=== PATIENT | male | born 1960 | race Caucasian/White ===

== ENCOUNTER → 2017-11-28 | Outpatient (CLI) | payer OTHER ==
[~2017-11-28] MED LIST: ASPIRIN325 PO; ATENOLOL-CHLOR1 EAC2 PO; ATORVASTATIN CA40 MG PO; BENICAR40 MG PO; EFFEXOR XR75 MG PO; FLOMAX0.4 MG PO; LISINOPRIL20 MG PO; MAXZIDE-25 MG1 EACH PO; MOBIC15 MG PO; NEURONTIN600 MG PO; NORCO 10-325 T1 EACH PO; NORVASC10 MG PO; PRINIVIL20 MG PO; XANAX1 MG PO; ZANAFLEX2 MG PO; gabapentin PO
--- NOTE | 2017-12-05 15:18 | PAINCON ---
[address] [address] PAIN MANAGEMENT CONSULTATION Name: ORLY VIGIL Room: [facility].#: [id number] Admission: 11/28/17 Attend Phys: Elba Stroud MD Discharge: Date of : 58 Report #: [id number] THIS REPORT FOR: //name// CC: Chrissy Stroud DATE OF SERVICE: 11/28/2017 FOLLOWUP COMPLAINT OR HISTORY OF PRESENT ILLNESS: The patient is a 57-year-old gentleman who has been referred to the pain clinic for evaluation. The patient states that he has a history of lumbar back pain. He has been treated by pain specialist in the past. States that he has chronic pain and has undergone epidural steroid injections without long-term benefit. He has had some treatment of his low back area with local anesthetic to see whether or not radiofrequency lesioning would be effective. This did not seem to be conducive to radiofrequency lesioning. 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 He would like to continue to work. Finds that that hydrocodone 10 mg q. 4-6 hours has been helpful. Also, has used ibuprofen. Gabapentin 600 mg has been tried. Overall, he rates his pain as an 8/10. He is concerned that he continues to have pain in his low back with some pain down into his buttocks. This pain has been problematic for a number of years. He feels that his pain control is about 50% improved with use of his current medications. He has been told that he may need to retire and receive benefits. He is not interested in that at this juncture. He would like to continue to work as long as he could. He feels that his current level of hydrocodone enables him to continue working. Without it, he would not be able to. He would like to continue with this medication and he would like to continue with his medications in the pain clinic. He would also like to try any other modalities that might improve his level of pain control. He was injured a number of years ago. 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 States that he did step on some oil. Slipped, fell and hurt his back. That was a workmen's compensation situation that has been resolved. ALLERGIES: TETANUS. CURRENT MEDICATIONS: Duloxetine 30 mg daily, lisinopril 20 mg b.i.d., Lipitor 40 mg, gabapentin 600 mg q.i.d., alprazolam 1 mg b.i.d., venlafaxine 75 mg, hydrocodone 10/325 q.4-6h. p.r.n., atenolol/chlorthalidone 100/25. PAST MEDICAL HISTORY: Hypertension, anxiety, hyperlipidemia, depression. PAST SURGICAL HISTORY: Tonsillectomy, vasectomy. FAMILY HISTORY: Father with bladder cancer, coronary artery disease, arthritis. Mother with non-Hodgkin's lymphoma, depression, hypertension, [place] [address] PAIN MANAGEMENT CONSULTATION Name: ORLY VIGIL Room: [facility]#: [id number] Admission: 11/28/17 Attend Phys: Elba Stroud MD Discharge: Date of : 58 Report #: [id number] thyroid disorder. Has children, son and daughter. 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 Drinks beer daily. REVIEW OF SYSTEMS: Decreased appetite, fatigue, weakness, hearing loss, ringing in the ears, sore throat, voice changes, loss of appetite, frequent urination, burning, painful urination, awakens to urinate at night, blood in the urine, changes in the force of his stream, incontinence, dribbling, sexual difficulty, hot and cold intolerance, joint pain, joint stiffness, weakness of muscles, muscle pain, back pain, difficulty walking, numbness and tingling, tremors. LABORATORY DATA: MRI of the lumbar spine dated 11/09/2017. 1. L2-L3 mild annular disk bulge present. No focal disk protrusion. Central spinal cord canal is maintained without stenosis. Mild encroachment of the exiting neural foramen bilaterally. There is a slight retrolisthesis, grade 1 of L2 related to L3. Mild facet degenerative changes. Thecal sac 1.0 cm AP. 2. L3-L4 mild degree of disk bulging. No evidence of disk protrusion. Central spinal canal and exiting neural foramen maintained. Thecal sac 1.2 cm AP. 3. L4-L5 annular disk bulge present. No focal disk protrusion. Mild effacement of the bilateral exiting neural foramen. Central canal without stenosis. Moderate facet arthropathy. Thecal sac 1.0 cm AP. 4. L5-S1 disk narrowing with minimal degree of disk bulging. No focal disk protrusion. There is severe facet arthropathy. Findings result in moderate to severe bilateral neural foraminal encroachment with thecal sac 1.1 cm AP. PAIN CLINIC ASSESSMENT: 1. The patient has some chronic low back pain with some degenerative changes with facet arthropathy. 2. Height 5 feet and 10 inches. Weight 218 pounds, BMI is 31. 3. Vitals: Blood pressure 138/74, heart rate 47, respiratory rate 16, room air saturation 97%, temperature 98.1. 4. Pain intensity 01/17. 5. Fall risk. The patient fell. He was walking in the kitchen. His dog tripped him up. 6. Blood thinners. The patient is not on a blood thinning medication. 7. Hypertension. The patient is being treated for hypertension. 8. Opioid therapy greater than 6 weeks. The patient has been receiving hydrocodone on a regular basis greater than 6 weeks from one physician. 9. Risk assessment tool. 10. Functional assessment tool. 11. Recreational drug use. The patient denies use of recreational drugs. 12. Tobacco. The patient smokes cigarettes 1 pack per day, has smoked for greater than 10 years. 13. Alcohol: The patient [place] [address] PAIN MANAGEMENT CONSULTATION Name: MADELINEANTONORLY Danial Room: [facility]#: [id number] Admission: 11/28/17 Attend Phys: Elba Stroud MD Discharge: Date of : 58 Report #: [id number] PHYSICAL EXAMINATION: GENERAL: The patient is a well-developed white male, appears his stated age. He is alert and oriented x 3. Speech is fluent. HEENT: Normocephalic, atraumatic. Extraocular eye muscles intact. Sclerae nonicteric. Hearing within normal limits. Mucous membranes are moist. NECK: Without adenopathy or JVD. Good range of motion. HEART: Regular rate. ABDOMEN: Nontender. CHEST: Clear to auscultation without rhonchi or rales. EXTREMITIES: Lower extremity muscle strength is judged to be 5/5 for the major muscle groups. Weston's sign was negative palpated. MUSCULOSKELETAL: The patient has somewhat of a kyphotic upper thoracic area without scoliosis or lordosis. Palpation in the left and right paraspinous muscles in the L4 through sacral area does cause some reproduction of his pain and discomfort. Forward bending to 60 degrees cause some increased back discomfort. Lumbar extension causes some discomfort in his low back, left and right lateral bending were noted with some increased pain and discomfort in the low back area. Left and right lateral rotation are somewhat limited and the patient's low back area was more problematic. The patient notes some increased discomfort in his shoulders with his hands over his head. Deep tendon reflexes are +1 for the biceps and triceps bilaterally. Absent at the knees and ankles. IMPRESSION: 1. Chronic low back pain. 2. Myofascial pain. 3. Anxiety. 4. Hyperlipidemia. 5. Coronary artery disease. RECOMMENDATIONS: We discussed treatment options with the patient. At this juncture, we will agree to write for the patient's hydrocodone. We explained to him the problems with use of opioid medications. He is aware of what is going on in the media. States that he keeps his medications locked up. Did have a daughter who had some problem with the opioid medications and she has turned her life around. States that he keeps his medications locked up in a gun rack at home. Feels that hydrocodone enables him to stay gainfully employed. We will try Mobic 7.5 mg 1 p.o. every day. Hopefully, this would provide some nonsteroidal anti-inflammatories benefit more so than the ibuprofen, which he has to take it multiple times through the day and p.r.n. A script for hydrocodone one p.o. q.4-6h has been provided. The patient has signed a contract with the pain clinic that he will only get his medications from 1 source. We will consider myofascial pain injection in his low back area. The patient will call us if he has any problem with his medications. [address] [address] PAIN MANAGEMENT CONSULTATION Name: ORLY VIGIL Danial Room: [facility] DANIEL Villanueva#: [id number] Admission: 11/28/17 Attend Phys: Elba Stroud MD Discharge: Date of : 58 Report #: [id number] We would like to thank you for letting us participate in his care. We hope he continues to improve. <ELECTRONICALLY SIGNED> By: Elba Stroud MD 12/05/17 1518 [id number]. Gm Stroud MD /[facility]
== END ==
LOC: M.PC 03:59
DX: G89.29 Other chronic pain (principal); M54.5 Low back pain; I25.10 Atherosclerotic heart disease of native coronary artery without angina pectoris; E78.5 Hyperlipidemia, unspecified; M79.1 Myalgia; F41.9 Anxiety disorder, unspecified

== ENCOUNTER → 2017-12-05 | Outpatient (CLI) | payer OTHER ==
--- NOTE | 2017-12-12 08:42 | PAINCON ---
[address] [address] PAIN MANAGEMENT CONSULTATION Name: MADELINEANTONORLY Danial Room: [facility]#: [id number] Admission: 12/05/17 Attend Phys: Elba Stroud MD Discharge: Date of : 58 Report #: [id number] THIS REPORT FOR: //name// CC: Chrissy Stroud DATE OF SERVICE: 12/05/2017 PRIMARY CARE PHYSICIAN: Chrissy Hodge MD FOLLOWUP COMPLAINT: Here for a trigger point injection. FOLLOWUP HISTORY: The patient is a 57-year-old gentleman who has been seen in the pain clinic. As you recall, he has a history of chronic back pain. He does have some myofascial pain/trigger point areas in his low back at this juncture. He has returned to the pain clinic for an injection of these areas. Feels that hydrocodone, meloxicam and gabapentin are helpful and would like to continue their use. 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 This entails quite a bit of work with contortions and quite a physical job. ALLERGIES: TETANUS. CURRENT MEDICATIONS: Duloxetine 30 mg daily, lisinopril 20 mg b.i.d., Lipitor 40 mg, gabapentin 600 mg q.i.d., alprazolam 1 mg b.i.d., venlafaxine 75 mg, hydrocodone 10/325, atenolol/chlorthalidone 100/25. PAIN CLINIC ASSESSMENT: 1. The patient has some chronic low back pain with some degenerative changes with facet arthropathy in his low back. 2. Height 5 feet 10 inches, weight 218 pounds, BMI is 31. 3. Vital signs: Blood pressure 144/81, heart rate 55, respiratory rate 16, room air saturation 97%, temperature 98.2. 4. Pain intensity 8/10. 5. Fall risk. The patient fell while walking in the kitchen when he was tripped by his dog in the last 3 months. 6. Blood thinner. The patient is not using any blood thinning medication at this juncture. 7. Hypertension. The patient is being treated for hypertension. 8. Opioid therapy greater than 6 weeks. The patient has received hydrocodone on a regular basis and is receiving his medications from one physician. 9. Risk assessment tool. 10. Functional assessment tool. 11. Recreational drug use: The patient denies use of recreational drugs. 12. Tobacco: The patient smokes 1 pack of cigarettes per day, has smoked for greater than [place] [address] PAIN MANAGEMENT CONSULTATION Name: ORLY VIGIL Room: [facility]#: [id number] Admission: 12/05/17 Attend Phys: Elba Stroud MD Discharge: Date of : 58 Report #: [id number] 13. Alcohol. The patient drinks alcoholic beverage daily. PHYSICAL EXAMINATION: GENERAL: The patient is a well-developed white male, appears stated age. He is alert and oriented x 3. The speech is fluent. HEENT: Normocephalic, atraumatic. Extraocular eye muscles intact. Sclerae nonicteric. Hearing is within normal limits. Mucous membranes are moist. NECK: Without adenopathy or JVD. Good range of motion. HEART: Regular rate. S1, S2. ABDOMEN: Nontender. CHEST: Clear to auscultation without rhonchi or rales. EXTREMITIES: Lower judged to be 5/5 muscle strength. MUSCULOSKELETAL: Without significant kyphosis, scoliosis or lordosis. Palpation in the left as well as the right L4-L5 and L5-S1 paraspinous muscle soreness with trigger points. IMPRESSION: 1. Chronic low back pain. 2. Myofascial pain. 3. Anxiety. 4. Hyperlipidemia. 5. Coronary artery disease. RECOMMENDATIONS: We discussed treatment options with the patient. Risks and benefits of trigger point injection were discussed at the last visit. Possible complications of the procedures were discussed and the benefits. At this juncture, the patient has returned to the pain clinic for a trigger point injection to the low back area in the left and right side in the area of the trigger points. He has been explained the possible complication of the procedure, which could include worsening of pain, no improvement in pain, bleeding, increased muscle soreness and agrees to proceed. PROCEDURE NOTE: The patient was placed in the sitting position. His back was sterilely prepped with a chlorhexidine solution. He is sitting perpendicular to table with a chair under his feet. A pillow was under his abdomen. The patient leaned forward as though he was going to tie his shoe. Trigger points were noted in the left as well as in the right posterior-superior iliac spine area near the gluteus ruben and the latissimus dorsi. Palpation on the left and right, reproduced pain of a trigger point in nature. The patient elects to proceed. His back had been sterilely prepped. The trigger point was identified. A 25-gauge needle was then advanced into the area of the posterior superior iliac spine area as well as the gluteus ruben and latissimus dorsi. A 25-gauge needle was then advanced into the left trigger point. The patient stated this was the appropriate area. Total of 10 mL of 0.5% bupivacaine and 80 mg Depo-Medrol was injected. The contralateral side was treated in a like fashion. The trigger point was identified. The latissimus dorsi [place] [address] PAIN MANAGEMENT CONSULTATION Name: ORLY VIGIL Room: [facility]#: [id number] Admission: 12/05/17 Attend Phys: Elba Stroud MD Discharge: Date of : 58 Report #: [id number] ruben area was palpated. This reproduced a trigger point. A 25-gauge needle was then advanced into the area of discomfort. A total of 10 mL of 0.25% bupivacaine and 80 mg Depo-Medrol was injected. The patient tolerated the procedure well. There were no complications. He remained in the pain clinic for an appropriate amount of time. He will monitor the area. The patient will refrain from activities, which might cause an infection. He will then follow up in the pain clinic in the near future. We would like to thank you for letting us participate in his care. We hope he continues to improve. <ELECTRONICALLY SIGNED> By: Elba Stroud MD 12/12/17 0842 [id number]. Gm Stroud MD /[facility]
== END | disposition home or self-care (01) ==
LOC: M.PC 03:28
DX: M79.1 Myalgia (principal); M46.96 Unspecified inflammatory spondylopathy, lumbar region; G89.29 Other chronic pain; I10 Essential (primary) hypertension; I25.10 Atherosclerotic heart disease of native coronary artery without angina pectoris; E78.5 Hyperlipidemia, unspecified; M54.5 Low back pain; F41.9 Anxiety disorder, unspecified; F17.210 Nicotine dependence, cigarettes, uncomplicated; Z79.899 Other long term (current) drug therapy; Z88.8 Allergy status to other drugs, medicaments and biological substances; Z79.891 Long term (current) use of opiate analgesic; Z79.82 Long term (current) use of aspirin

== ENCOUNTER → 2018-01-30 | Outpatient (CLI) | payer OTHER ==
--- NOTE | 2018-02-05 16:41 | PAINCON ---
[address] [address] PAIN MANAGEMENT CONSULTATION Name: ORLY VIGIL Room: [facility]#: [id number] Admission: 01/30/18 Attend Phys: Elba Stroud MD Discharge: Date of : 58 Report #: [id number] THIS REPORT FOR: //name// CC: Chrissy Stroud DATE OF SERVICE: 01/30/2018 CHIEF COMPLAINT: Pain in the mid back area, which improved after the last injection, I would like to have another. FOLLOWUP HISTORY: The patient is a 57-year-old gentleman who has been seen in the pain clinic because of myofascial pain. He underwent trigger point injections to his low back area. 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 He requires quite a bit of movement. He has noted that his pain continues to worsen. It improved after the last injection in the low back area. He has returned today with the hopes of proceeding with another injection to help quell his pain. ALLERGIES: TETANUS. CURRENT MEDICATIONS: Duloxetine 30 mg, lisinopril 20 mg b.i.d., Lipitor 40 mg, gabapentin 600 mg q.i.d., alprazolam 1 mg b.i.d., venlafaxine 75 mg, hydrocodone 10/325, atenolol and chlorthalidone 100/25. PAIN CLINIC ASSESSMENT: 1. The patient has some chronic pain in his low back with his degenerative in nature with facet arthropathy in his low back. 2. Height 5 feet 10 inches, weight 223 pounds and BMI 32. 3. VITAL SIGNS: Blood pressure 198/96, pulse 65, respiratory rate 16, room air saturation 96% and second blood pressure 171/93. 4. Pain intensity /10. 5. Fall history: The patient has not fallen in the last 3 months. 6. Blood thinner. The patient is not on a blood thinning medication. 7. Hypertension. The patient is being treated for hypertension. He is going to see his physician today again regarding the elevated blood pressures. They have been making some inroads into this. 8. Opioid use. The patient has received hydrocodone to the pain clinic. He gets this medication from one source. 9. Risk assessment tool. 10. Functional assessment tool. 11. Recreational drug use. The patient denies use of recreational drugs. 12. Tobacco: The patient denies use of tobacco. 13. Alcohol: The patient denies use of alcohol. PHYSICAL EXAMINATION: [address] [place] [address] PAIN MANAGEMENT CONSULTATION Name: ORLY VIGIL Room: [facility]#: [id number] Admission: 01/30/18 Attend Phys: Elba Stroud MD Discharge: Date of : 58 Report #: [id number] GENERAL: The patient is a well-developed, well-nourished white male. Appears his stated age. He is alert and oriented x 3. Affect is appropriate. Speech is fluent. HEENT: Normocephalic, atraumatic. Extraocular motion intact. Sclerae nonicteric. Hearing within normal limits. Mucous membranes are moist. NECK: Without adenopathy or JVD. Good range of motion. HEART: Regular rate. S1, S2. ABDOMEN: Nontender. CHEST: Clear to auscultation without rhonchi or rales. EXTREMITIES: Judged to be 5/5 for the major muscle groups. The patient has a perception in his feet of the skin feels as though it is being stretched. Notes some tingling in his feet after prolonged standing. MUSCULOSKELETAL: Without significant kyphosis, scoliosis or lordosis. Palpation in the left and right L5-S1, L4-L5 paraspinous muscle areas denotes trigger points on both left and right side. IMPRESSION: 1. Bilateral trigger points, which improved after the last injection. 2. Myofascial pain. 3. Anxiety. 4. Hypertension. 5. Hyperlipidemia. 6. Coronary artery disease. RECOMMENDATION: The patient did have some elevated blood pressures today. States that he is going to see his primary physician today in regards to the elevated blood pressures to have this attended to. He would like to undergo a trigger point injection to the affected areas. Last injections were quite beneficial and the patient noted decrease in his pain and increased ability to engage in activities with less discomfort. He has noted that these have returned. I would like to proceed with treatment for those two trigger point areas. Risks and benefits of the procedure were discussed. They include possibility of an impression of infection, worsening of pain, no improvement in pain and the patient elects to proceed. PROCEDURE NOTE: The patient was placed in the sitting position. He is perpendicular to the table in the examination room. He has a chair was placed under his feet. His back was palpated. In the left and right paraspinous muscle area near the posterior superior iliac spine and the clip gluteus rbuen/levator of the latissimus dorsi. The patient has trigger points. These were sterilely prepped with a Betadine solution. A 25-gauge needle was then advanced into the trigger point near the left gluteus ruben, latissimus dorsi and a total of 10 mL of 0.5% bupivacaine, 40 mg triamcinolone was injected after the trigger point was identified and the patient acknowledged this was a trigger point. The contralateral side was treated in a like fashion. A 25-gauge needle was advanced to the area trigger point was noted. Total of 10 mL of 0.5% [place] [address] PAIN MANAGEMENT CONSULTATION Name: MUSAORLY Danial Room: [facility]#: [id number] Admission: 01/30/18 Attend Phys: Elba Stroud MD Discharge: Date of : 58 Report #: [id number] bupivacaine and 40 mg triamcinolone was injected. The patient tolerated the procedure well. There were no complications. He remained in the pain clinic for an appropriate amount of time. He will follow up with his primary regarding the elevated blood pressure readings. <ELECTRONICALLY SIGNED> By: Elba Stroud MD 02/05/18 1641 [id number]. Gm Stroud MD /nt
== END | disposition home or self-care (01) ==
LOC: M.PC 01-07 12:00
DX: M79.1 Myalgia (principal); G89.29 Other chronic pain; I10 Essential (primary) hypertension; E78.5 Hyperlipidemia, unspecified; F41.9 Anxiety disorder, unspecified; I25.10 Atherosclerotic heart disease of native coronary artery without angina pectoris; Z88.8 Allergy status to other drugs, medicaments and biological substances; Z79.891 Long term (current) use of opiate analgesic; Z79.899 Other long term (current) drug therapy; Z79.82 Long term (current) use of aspirin

== ENCOUNTER → 2018-02-27 | Outpatient (CLI) | payer OTHER ==
--- NOTE | 2018-03-24 10:00 | PAINCON ---
[address] [address] PAIN MANAGEMENT CONSULTATION Name: ORLY VIGIL Room: [facility]#: [id number] Admission: 02/27/18 Attend Phys: Elba Stroud MD Discharge: Date of : 58 Report #: [id number] THIS REPORT FOR: //name// CC: Chrissy Stroud DATE OF SERVICE: 02/27/2018 FOLLOWUP COMPLAINT: Pain in the chest and low back area. HISTORY OF PRESENT ILLNESS: The patient is a 58-year-old gentleman who has been seen in the pain clinic because of chronic pain. He has been experiencing some chest pain. Has some pain in his thigh as well as his low back area. He has been treated for myofascial pain. He has undergone trigger point injections and gleaned benefit from these. At this juncture, because of the chest pain, the patient is undergoing a stress echo today. He also has been having some problems with his blood pressure. States that his heart rate had been in about the 50s to 60s level, now it has been placed at about 100. Did have an episode when he was at work lifting an item. States that his heart rate went to about 180. He has a fit bracelet on his arm, which measured that rate for him. He states that rate went down after he rested for a while. 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 ALLERGIES: TETANUS. CURRENT MEDICATIONS: Duloxetine 30 mg, lisinopril 20 mg b.i.d., Lipitor 40 mg, gabapentin 600 mg q.i.d., alprazolam 1 mg b.i.d., venlafaxine 75 mg, hydrocodone 10/325, atenolol, chlorthalidone 100/25. PAIN CLINIC ASSESSMENT AND PQRS: 1. The patient has not been treated for osteoarthritis or rheumatoid arthritis. 2. Height 5 feet 10 inches. Weight 225 pounds, BMI is 32. 3. Vital signs: Blood pressure 161/108, heart rate 75, respiratory rate 16, room air saturation 98%, temperature 98.2. 4. Pain score 7/10. 5. Fall history: The patient has not fallen in the last 3 months. 6. Blood thinner. The patient is not on a blood thinning medication. 7. Hypertension. The patient is being treated for hypertension and his physician continues to work toward regulating his blood pressures. 8. Opioid use. The patient [facility]. 9. Risk assessment tool. 10. Functional assessment tool. 11. Recreational drug use. The patient denies use of recreational drugs. 12. Tobacco: The patient has smoked about one and a half packs of cigarettes per day, has smoked for 11 years. Admits [place] [address] PAIN MANAGEMENT CONSULTATION Name: MADELINEANTONORLY Danial Room: [facility]#: [id number] Admission: 02/27/18 Attend Phys: Elba Stroud MD Discharge: Date of : 58 Report #: [id number] PHYSICAL EXAMINATION: GENERAL: The patient is a well-developed, well-nourished white male. Appears his stated age. He is alert and oriented x 3. His affect is appropriate. Speech is fluent. HEENT: Normocephalic, atraumatic. Extraocular eye muscles intact. Sclerae not icteric. Mucous membranes are moist. NECK: Without adenopathy or JVD. Good range of motion. HEART: Regular rate. ABDOMEN: Nontender. CHEST: Clear to auscultation without rhonchi or rales. EXTREMITIES: Judged to be 5/5 for the major muscle groups in the upper extremity without change in muscle bulk. The patient has a perception in his feet that his skin is being stretched with some tingling after prolonged standing. MUSCULOSKELETAL: Without kyphosis, scoliosis or lordosis. Palpation of the left and right L5-S1 and L4-L5, paraspinous muscles did note some soreness on the sides. IMPRESSION: 1. Chest pain: The patient is about to undergo a stress echo today. 2. Myofascial pain improved with trigger point injections. 3. Anxiety. 4. Hypertension. 5. Hyperlipidemia. 6. Coronary artery disease. RECOMMENDATIONS: We discussed treatment options with the patient. At this juncture, we will continue with his current medications. A script for his medications of hydrocodone have been written. The patient states that he is taking meloxicam and finds this medication helpful. He is scheduled today to undergo a stress echo. He will follow up with his primary physician in regards to blood pressure management. He will call us if he has any problems. We would like to thank you for letting us participate in his care. We have spoken with the patient about use of tobacco. I explained to the patient the pathophysiology of tobacco smoke how that it can be problematic for him, particularly in the case of him now having chest pain. He will follow up in the future. We would like to thank you for letting us participate in his care. We hope he continues to improve. <ELECTRONICALLY SIGNED> By: Elba Stroud MD 03/24/18 [id number]. MD SHARIFA Lester
== END ==
LOC: M.PC 01:43
DX: F41.9 Anxiety disorder, unspecified (principal); I10 Essential (primary) hypertension; E78.5 Hyperlipidemia, unspecified; I25.10 Atherosclerotic heart disease of native coronary artery without angina pectoris

== ENCOUNTER → 2018-03-27 | Outpatient (CLI) | payer OTHER ==
[~2018-03-27] MED LIST changes: -ZANAFLEX2 MG PO
--- NOTE | 2018-04-23 16:08 | PAINCON ---
[address] [address] PAIN MANAGEMENT CONSULTATION Name: ORLY VIGIL Room: [facility]#: [id number] Admission: 03/27/18 Attend Phys: Elba Stroud MD Discharge: Date of : 58 Report #: [id number] THIS REPORT FOR: //name// CC: Chrissy Stroud DATE OF SERVICE: 03/27/2018 CHIEF COMPLAINT: Like to have the medication renewed. I had some pain in the middle of my back that has been pretty severe. FOLLOWUP HISTORY: The patient is a 58-year-old gentleman who has been followed in the pain clinic because of myofascial pain. He has undergone trigger point injections to this area and gleaned benefits from these. He notes that the pain continues to be less since the injection, but notes some increased discomfort. Feels at about, T12-L1 there is some increased pain and discomfort. States that last night he was working on mass problems. The pain is severe enough that he elected to go to bed. 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 States that it is a 5 year program. He has approaching the 1 year maximo. Notes that some of the pain in his back is secondary to his job, which causes different amounts of lifting and can torsioning. At this juncture, he has returned today with a desire to renew his nonsteroidal anti-inflammatory medication and the hydrocodone. ALLERGIES: TETANUS. CURRENT MEDICATIONS: Duloxetine 30 mg, lisinopril 20 mg b.i.d., Lipitor 40 mg, gabapentin 600 mg q.i.d., alprazolam 1 mg b.i.d., venlafaxine 75 mg, hydrocodone , atenolol, chlorthalidone 04/03. PAIN CLINIC ASSESSMENT/PQRS: 1. The patient has not been treated for osteoarthritis or rheumatoid arthritis. 2. Height 5 feet 10 inches, weight 230 pounds, BMI is 33. 3. Vital signs: Blood pressure 162/93, heart rate 72, respiratory rate 18, room air saturation 97%, temperature 98%. 4. Pain intensity to an 8/10. 5. Fall history: The patient states that he has fallen in the last 3 months. He states that he simply missed a step. There was no medical need. 6. Blood thinner. The patient is not on a blood thinning medication. 7. Hypertension. The patient has been treated for hypertension. His high blood pressure is somewhat elevated and he is on 3 medications currently. 8. Opioid therapy greater than 6 weeks. The patient has received hydrocodone 1 tablet p.o. every 6 hours p.r.n., total of four tablets daily, a morphine equivalent of 40 mEq. 9. Risk [place] [address] PAIN MANAGEMENT CONSULTATION Name: MADELINEANTONORLY Danial Room: [facility]#: [id number] Admission: 03/27/18 Attend Phys: Elba Stroud MD Discharge: Date of : 58 Report #: [id number] 10. Functional assessment tool. Recreational drug use. The patient denies use of recreational drugs. 11. Tobacco: The patient has smoked for 11 years and smoked one-half pack of cigarettes per day spoke with the patient about 3 minutes regarding the benefits of tobacco use. 12. Alcohol: The patient drinks some beer daily. PHYSICAL EXAMINATION: GENERAL: The patient is a well-developed, well-nourished white male. Appears his stated age. He is alert and oriented x3. His affect is appropriate. Speech is fluent. HEAD, EYES, EARS, NOSE, AND THROAT: Normocephalic, atraumatic. Extraocular eye muscles intact. NECK: Without adenopathy or bruits. HEART: Regular rate. S1, S2. ABDOMEN: Nontender. Bowel sounds present. CHEST: Clear to auscultation without rhonchi or rales. EXTREMITIES: Upper extremity muscle strength is judged to be 5/5 for the major muscle groups. The patient has some complaint of pain and discomfort in the middle of his back approximately T12-L1. Notes that with certain movements, flexion, extension note some exacerbation of his back pain. It continues to have pain and discomfort in the left as well as the right paraspinous areas, which have been injected. The patient is not complaining of significant pain radiating down into his legs. MUSCULOSKELETAL: Without kyphosis, scoliosis, lordosis. IMPRESSION: 1. Myofascial pain trigger point injections have been beneficial. 2. Anxiety. 3. Hypertension. 4. Hyperlipidemia. 5. Coronary artery disease. RECOMMENDATIONS: We discussed treatment options with the patient. At this juncture, we will continue with his current medications. He is taking medication as prescribed. He has been given a script for hydrocodone 1 tablet p.o. q.i.d. The patient has been warned not to use alcoholic beverages while on his job or in combination with the opioid medications. These can cause increased problems with sedation and being able to think clearly. The patient states that he would be mindful of that. The patient finds that Meloxicam is helpful. He will monitor his GI tract. If he notes some problems with GI discomfort or bleeding. He will stop this medication. We discussed the benefits of a flu shot. The patient declines flu injections. States that he has on rare occasion in his life had and opts not to undergo a flu shot. Does not like the thought that the government mandated flu shots. He will follow up in the future [place] [address] PAIN MANAGEMENT CONSULTATION Name: ORLY VIGIL Room: [facility]#: [id number] Admission: 03/27/18 Attend Phys: Elba Stroud MD Discharge: Date of : 58 Report #: [id number] We would like to thank you for letting us to participate in his care. We hope he continues to improve. <ELECTRONICALLY SIGNED> By: Elba Stroud MD 04/23/18 [id number] 1515N. Gm Stroud MD /[facility] [place]
== END ==
LOC: M.PC 05:27
DX: M79.18 Myalgia, other site (principal); I10 Essential (primary) hypertension; E78.5 Hyperlipidemia, unspecified; I25.10 Atherosclerotic heart disease of native coronary artery without angina pectoris; F41.9 Anxiety disorder, unspecified; Z79.899 Other long term (current) drug therapy

== ENCOUNTER → 2018-04-24 | Outpatient (CLI) | payer OTHER ==
[~2018-04-24] MED LIST changes: +ZANAFLEX2 MG PO
--- NOTE | ~2018-04-24 | PAINCON ---
[address] [address] PAIN MANAGEMENT CONSULTATION Name: ORLY VIGIL Room: [facility]#: [id number] Admission: 04/24/18 Attend Phys: Elba Stroud MD Discharge: Date of : 58 Report #: [id number] THIS REPORT FOR: //name// CC: Chrissy Stroud DATE OF SERVICE: 04/24/2018 CHIEF COMPLAINT: The low back pain has returned. The trigger point injections were helpful. HISTORY: The patient is a 58-year-old gentleman who has been followed in the Pain Clinic because of myofascial pain. As you may recall, he has undergone trigger point injections. He is gleaned benefits from these. He has returned today indicating that he is having some recurrence of his pain. 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 States that there are some jobs that he has done, which are challenging. States that he had to go and move some large pipes. Has noted some pain and discomfort in his back since that time. 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 He is somewhat concerned that activities such as these exacerbate his back pain. He feels that Meloxicam, hydrocodone and gabapentin medications are helpful. He has returned today with a desire to undergo a trigger point injection to the myofascial pain, places in his low back area today. ALLERGIES: TETANUS. CURRENT MEDICATIONS: Duloxetine 30 mg, lisinopril 20 mg b.i.d., Lipitor 40 mg, gabapentin 600 mg q.i.d., alprazolam 1 mg b.i.d., venlafaxine 75 mg, hydrocodone 10/325, atenolol/chlorthalidone ____. PAIN CLINIC ASSESSMENT/PQRS: 1. The patient has not been treated for osteoarthritis or rheumatoid arthritis. 2. Height 5 feet 10 inches, weight 227 pounds, BMI is 32.7. 3. Vital signs: Blood pressure 137/79, heart rate 74, respiratory rate 16, room air saturation is 95%, temperature 98.5. 4. Pain intensity, 01/17. 5. Fall history. The patient has not fallen in the last 3 months. 6. Blood thinner. The patient is not on a blood thinning medication. 7. Hypertension: The patient is being treated for hypertension. 8. Opioids greater than 6 weeks. The patient does receive medications, through the Pain Clinic. 9. Risk assessment tool. 10. Functional assessment tool. 11. Tobacco: The patient has smoked for 11 years, smoked one half pack of cigarettes per day. I spoke with the patient about 3 minutes regarding the benefits of tobacco [place] [address] PAIN MANAGEMENT CONSULTATION Name: ORLY VIGIL Room: [facility]#: [id number] Admission: 04/24/18 Attend Phys: Elba Stroud MD Discharge: Date of : 58 Report #: [id number] 12. Alcohol: The patient does drink an alcoholic beverage daily. PHYSICAL EXAMINATION: GENERAL: The patient is a well-developed, well-nourished white male. Appears his stated age. He is alert and oriented x 3. His affect is appropriate. Speech is fluent. HEENT: Normocephalic, atraumatic. Extraocular eye muscles intact. Sclerae nonicteric. Mucous membranes are moist. NECK: Without adenopathy or JVD. HEART: Regular rate. S1, S2. ABDOMEN: Nontender. Bowel sounds present. CHEST: Clear to auscultation without rhonchi or rales. EXTREMITIES: Upper extremity muscle strength is judged to be 5/5 for the major muscle groups. The patient has some pain and discomfort in lower portion of his back near the lumbar area at L5-S1 in the paraspinous muscle area. Palpation in this area does reproduce his pain and discomfort with trigger point noted in these 2 areas. MUSCULOSKELETAL: Without significant kyphosis, scoliosis or lordosis. IMPRESSION: 1. Myofascial pain with trigger points in the low back area. 2. Anxiety. 3. Hypertension. 4. Hyperlipidemia. 5. Coronary artery disease. RECOMMENDATIONS: We discussed treatment options with the patient. Risks and benefits of a trigger point injection to the affected areas were discussed. The patient has been noting pain and discomfort in the low back area with certain activities associated with his job. He has some concerns as to whether or not this might be a problem long-term with him. We explained to the patient that for determination of the ones ability to work one would need a functional capacity exam. I explained to him that I do not get into disability decisions. At this juncture, he would like to go ahead and continue with trigger point injection in the low back areas today. PROCEDURE NOTE: The patient was taken to the procedure area. He was assisted in getting on the examination table. He sat perpendicular to the table. A chair was placed under his feet. His back was sterilely prepped with a chlorhexidine solution, which was allowed to dry. Left and right posterior superior iliac spine areas were tender and trigger points were noted. The right area was identified in the area of the gluteus ruben and latissimus dorsi. A 25-gauge needle was then advanced into this area. A total of 80 mg Depo-Medrol was injected. A total of 8 mL of 0.5% bupivacaine was utilized. The contralateral left side was treated in the like fashion. Trigger point was noted in the area of the latissimus dorsi and the gluteus ruben. [place] 25[place] [address] PAIN MANAGEMENT CONSULTATION Name: ORLY VIGIL Room: [facility]#: [id number] Admission: 04/24/18 Attend Phys: Elba Stroud MD Discharge: Date of : 58 Report #: [id number] needle was then advanced into this area. A total of 8 mL of 0.5% bupivacaine was injected into the second trigger point. The patient tolerated the procedure well. There was no bleeding. He was taken to the recovery room where he remained for an appropriate amount of time. A script for meloxicam 15 mg 1 p.o. daily and tizanidine were rewritten. The patient also has been given a script for hydrocodone 10/325 one p.o. daily. The patient will not take his medication if he notes any problems with sedation or clear lack of clarity in his thinking. He states that he would. We would like to thank you for letting us participate in his care. We hope he continues to improve. By: [id number]. Gm Stroud MD /nt
== END | disposition home or self-care (01) ==
LOC: M.PC 05:35
DX: M79.18 Myalgia, other site (principal); F41.9 Anxiety disorder, unspecified; I10 Essential (primary) hypertension; E78.5 Hyperlipidemia, unspecified; I25.10 Atherosclerotic heart disease of native coronary artery without angina pectoris; F17.210 Nicotine dependence, cigarettes, uncomplicated; Z98.890 Other specified postprocedural states; Z88.8 Allergy status to other drugs, medicaments and biological substances; Z79.899 Other long term (current) drug therapy; Z79.891 Long term (current) use of opiate analgesic; Z79.82 Long term (current) use of aspirin

== ENCOUNTER → 2018-05-22 | Outpatient (CLI) | payer OTHER ==
--- NOTE | ~2018-05-22 | PAINCON ---
[address] [address] PAIN MANAGEMENT CONSULTATION Name: ORLY VIGIL Room: [facility]#: [id number] Admission: 05/22/18 Attend Phys: Elba Storud MD Discharge: Date of : 58 Report #: [id number] THIS REPORT FOR: //name// CC: Chrissy Stroud DATE OF SERVICE: 05/22/2018 CHIEF COMPLAINT: Continued low back pain. Have pain in the mid and upper back, which has been there for years. FOLLOWUP HISTORY: The patient is a 58-year-old gentleman who has been followed in the pain clinic. As you recall, he has a long history of back pain involving his upper back as well as some lower back. He continues to have some spasms in the upper as well as lower back area. Feels that tizanidine has been helpful. Also, has some intercostal muscle soreness. Left side and right side are both problematic. He finds that his medications, continue to "take the edge off." Rates his pain as an 8/10. 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 These all can exacerbate his pain and makes things more problematic. Overall, he feels that his medications are helpful. He has undergone trigger point injections in the past and this has been helpful with the myofascial pain in the low back area. ALLERGIES: TETANUS. CURRENT MEDICATIONS: Duloxetine 30 mg, lisinopril 20 mg b.i.d., Lipitor 40 mg, gabapentin 600 mg q.i.d., alprazolam 1 mg b.i.d., venlafaxine 75 mg, hydrocodone 10/325, atenolol, chlorthalidone. PAIN CLINIC ASSESSMENT/PQRS: 1. The patient is not being treated for rheumatoid arthritis or osteoarthritis. 2. Height 5 feet 10 inches, weight 230 pounds, BMI is 33.8. 3. Vital signs: Blood pressure 128/88, heart rate 84, respiratory rate 16, room air saturation 96%, temperature is 98.2. 4. Pain intensity 8/10. 5. Fall history: The patient has not fallen in the last 3 months. 6. Blood thinner. The patient is not on a blood thinning medication. 7. Hypertension. The patient is being treated for hypertension. 8. Opioids greater than 6 weeks. The [facility]. 9. Risk assessment tool, low for opioid use. 10. Functional assessment tool. 11. Tobacco: The patient continues to smoke cigarettes. Smokes one-half pack of cigarettes per day. Again, we discussed the benefits of smoking cessation with the patient. 12. Alcohol: The patient denies use of alcoholic [place] [address] PAIN MANAGEMENT CONSULTATION Name: ORLY VIGIL Room: [facility]#: [id number] Admission: 05/22/18 Attend Phys: Elba Stroud MD Discharge: Date of : 58 Report #: [id number] PHYSICAL EXAMINATION: GENERAL: The patient is well-developed, well-nourished white male, appears his stated age. He is alert and oriented x3. Affect was appropriate. Speech is fluent. HEAD, EYES, EARS, NOSE, AND THROAT: Normocephalic, atraumatic. Extraocular eye muscles intact. Sclerae nonicteric. Mucous membranes are moist. NECK: Without adenopathy or JVD. HEART: Regular rate. S1, S2. ABDOMEN: Nontender. Bowel sounds present. CHEST: Clear to auscultation without rhonchi or rales. EXTREMITIES: Upper extremity muscle straight judged to be 5/5 for the major muscle groups. The patient has some pain and discomfort in lower portion of his back and has some discomfort in the L5-S1 area near the paraspinous muscles. Palpation in this area reproduces pain and discomfort. Has a trigger point in this area on the left than the right. MUSCULOSKELETAL: Without significant scoliosis, kyphosis or lordosis. IMPRESSION: 1. Myofascial pain with trigger points as well as chronic low back pain. 2. Anxiety. 3. Hypertension. 4. Hyperlipidemia. 5. Coronary artery disease. RECOMMENDATIONS: We discussed treatment options with the patient. At this juncture, we will continue with his current medications. He feels that the medications are helpful. He does not have any real problems with the meloxicam. No GI complaints. He feels that tizanidine is helpful with muscle spasms. He does not have any problems with thinking. He is able to think clearly. Overall, he feels that his pain is about 40% improved with his current medical regimen. 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 He will follow up in the future as needed. We would like to thank you for letting us to participate in his care. We hope he continues to improve. By: [id number]. Gm Stroud MD /[facility]
== END ==
LOC: M.PC 05:27
DX: M54.5 Low back pain (principal); G89.29 Other chronic pain; M79.18 Myalgia, other site; I10 Essential (primary) hypertension; E78.5 Hyperlipidemia, unspecified; I25.10 Atherosclerotic heart disease of native coronary artery without angina pectoris; F41.9 Anxiety disorder, unspecified

== ENCOUNTER → 2018-06-19 | Outpatient (CLI) | payer OTHER ==
[~2018-06-19] MED LIST changes: +ZANAFLEX4 MG PO
--- NOTE | ~2018-06-19 | PAINCON ---
[address] [address] PAIN MANAGEMENT CONSULTATION Name: ORLY VIGIL Room: [facility]#: [id number] Admission: 06/19/18 Attend Phys: Elba Stroud MD Discharge: Date of : 58 Report #: [id number] THIS REPORT FOR: //name// CC: Chrissy Stroud DATE OF SERVICE: 06/19/2018 CHIEF COMPLAINT: Here for medication renewal. I have been laid off work since the day after . HISTORY: The patient is a 58-year-old gentleman who has been followed in the Pain Clinic because of chronic pain, which he has had in his back. This pain has been problematic in the lower back for a number of years. He has returned today for followup. He feels his medications are helpful. Rates his pain as 7/10 at this juncture. He has been laid off since . 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 Since things have slowed down a little bit, he has less work. He is awaiting to be called back to work. He notes that he continues to have some soreness in the low back area. Also, notes some increase changes with shaking in his right hand. He has had shaking in his left hand for some time. Feels that the meloxicam, tizanidine, gabapentin and hydrocodone are beneficial and has returned today for renewal of the medications. He notes pain is worse with activity, walking, standing, lifting and bending. Notes the pain improves with rest. ALLERGIES: TETANUS. CURRENT MEDICATIONS: Duloxetine 30 mg, lisinopril 20 mg b.i.d., Lipitor 40 mg, gabapentin 600 mg q.i.d., alprazolam 1 mg b.i.d., venlafaxine 75 mg, hydrocodone 10/325, atenolol, and chlorthalidone. PAIN CLINIC ASSESSMENT/PQRS: 1. The patient is not being treated for rheumatoid arthritis or osteoarthritis. 2. Height 5 feet 10 inches, weight 232 pounds, BMI is 35. 3. Vital signs: Blood pressure 149/93, heart rate 72, respiratory rate 18 and room air saturation 96%, temperature 98.1. 4. Pain intensity. The patient rates as a 7/10. 5. Fall history: The patient has not fallen in the last 3 months. 6. Blood thinner: The patient is not on a blood thinning medication. 7. Opioids greater than 6 weeks. The [facility]. 8. Risk assessment tool, low for opioid use. 9. Functional assessment tool. 10. Tobacco. The patient continues to smoke cigarettes, smokes about one-half pack of cigarettes per day. We again discussed [place] [address] PAIN MANAGEMENT CONSULTATION Name: ORLY VIGIL Room: [facility]#: [id number] Admission: 06/19/18 Attend Phys: Elba Stroud MD Discharge: Date of : 58 Report #: [id number] cessation. 11. Alcohol. The patient denies use of alcoholic beverages. PHYSICAL EXAMINATION: GENERAL: The patient is a well-developed, well-nourished white male. Appears his stated age. He is alert and oriented x 3. His affect is appropriate. Speech is fluent. HEENT: Normocephalic, atraumatic. Extraocular eye muscles intact. Sclerae nonicteric. Mucous membranes are moist. NECK: Without adenopathy or JVD. HEART: Regular rate. S1, S2. ABDOMEN: Nontender. Bowel sounds are present. CHEST: Clear to auscultation without rhonchi or rales. EXTREMITIES: Upper extremity muscle strength is judged to be 5-/5 for the major muscle groups. The patient has some pain and discomfort in the lower portion of his back that is in the left and right paraspinus area around the sacrum L5-S1. He has trigger points in this area. IMPRESSION: 1. Myofascial pain with trigger points in the low back area. 2. Anxiety. 3. Hypertension. 4. Hyperlipidemia. 5. Coronary artery disease. RECOMMENDATIONS: We discussed treatment options with the patient. The risk and benefits of opioid medication were discussed. They include the possibility of addiction as well as less effectiveness secondary to tolerance. The patient overall feels medications are helpful and would like to continue with their use at this juncture. A script for his medications have been written. He will call us if he has any concerns. We would like to thank you for letting us participate in his care. We hope he continues to improve. A script for tizanidine has been written as well. By: [id number]. Gm Stroud MD /nt
== END ==
LOC: M.PC 11:22
DX: M54.5 Low back pain (principal); M79.18 Myalgia, other site; I10 Essential (primary) hypertension; E78.5 Hyperlipidemia, unspecified; I25.10 Atherosclerotic heart disease of native coronary artery without angina pectoris; F41.9 Anxiety disorder, unspecified; Z79.899 Other long term (current) drug therapy

== ENCOUNTER → 2018-07-22 | Outpatient (CLI) | payer OTHER ==
--- NOTE | ~2018-07-22 | PAINCON ---
[address] [address] PAIN MANAGEMENT CONSULTATION Name: ORLY VIGIL Room: [facility]#: [id number] Admission: 07/22/18 Attend Phys: Elba Stroud MD Discharge: Date of : 58 Report #: [id number] THIS REPORT FOR: //name// CC: Chrissy Stroud DATE OF SERVICE: 07/22/2018 FOLLOWUP COMPLAINT: Here for medications. I have been laid off since , but we have got more work, so they will probably call us back. HISTORY: The patient is a 58-year-old gentleman who has been followed in the pain clinic because of chronic pain. Has chronic back pain. He has noted pain, which has been problematic or not for some years. He returns today in followup for renewal of his medications. As you recall, he is changing his vocation. 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 His job was slow during May. He was laid off. He now has received a text indicating that they will probably be returned to work soon. 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 He feels that his medications of tizanidine, meloxicam, gabapentin and hydrocodone are helpful. He would like to have these medications renewed. He does not have any problems with them. Still has pain and discomfort with walking, bending, standing, lifting and other activities. ALLERGIES: TETANUS. CURRENT MEDICATIONS: Duloxetine 30 mg, lisinopril 20 mg b.i.d., Lipitor 40 mg, gabapentin 600 mg q.i.d., alprazolam 1 mg b.i.d., venlafaxine 75 mg, hydrocodone 10/325, atenolol, chlorthalidone. PAIN CLINIC ASSESSMENT/PQRS: 1. The patient is not being treated for rheumatoid arthritis or osteoarthritis. 2. Height 5 feet 10 inches, weight 237 pounds, BMI is 33.3. 3. Vital signs: Blood pressure 146/67, heart rate 66, respiratory rate 16, room air saturation is 97%, temperature 97.6. 4. Pain intensity 8/10. 5. Fall history: The patient has not fallen in the last 3 months. 6. Blood thinner. The patient is not on a blood thinning medication. 7. Opioids greater than 6 weeks. The patient receives this [facility] clinic. 8. Risk assessment tool, low for opioid use. 9. Functional assessment tool. 10. Tobacco: The patient denies use of tobacco, does smoke about half pack of cigarettes per day. Again, we discussed the benefits of smoking cessation. 11. Alcohol: The patient [place] [address] PAIN MANAGEMENT CONSULTATION Name: ORLY VIGIL Room: [facility]#: [id number] Admission: 07/22/18 Attend Phys: Elba Stroud MD Discharge: Date of : 58 Report #: [id number] PHYSICAL EXAMINATION: GENERAL: The patient is a well-developed, well-nourished white male. Appears his stated age. He is alert and oriented x 3. His affect is appropriate. Speech is fluent. HEAD, EYES, EARS, NOSE, AND THROAT: Normocephalic, atraumatic. Extraocular eye muscles intact. Sclerae nonicteric. Mucous membranes are moist. NECK: Without adenopathy or JVD. HEART: Regular rate. S1, S2. ABDOMEN: Nontender, bowel sounds present. LUNGS: Clear to auscultation without rhonchi or rales. EXTREMITIES: Lower extremity muscle strength judged to be 5-/5 for the major muscle groups in the lower back area. The patient has some pain and discomfort in the lower area in the left as well as the right paraspinous area near the sacrum near L5-S1. Does have some trigger points in this area. IMPRESSION: 1. Myofascial pain history with trigger points in the lower back. 2. Anxiety. 3. Hypertension. 4. Hyperlipidemia. 5. Coronary artery disease. RECOMMENDATIONS: We discussed treatment options with the patient. At this juncture, we will continue with his current medication use. Risk and benefits of smoking cessation given that he does have cardiac disease reminded to the patient. He will continue with meloxicam 15 mg 1 p.o. daily, tizanidine 10 mg t.i.d. and hydrocodone 10/325 one p.o. 4 times daily. We discussed the risks of opioid use, which could be addiction as well as it is shortcomings which could be that of development of tolerance. Overall, he feels things are going reasonably well. He would like to continue his medications. A script for his medications has been rewritten. By: [id number]. Gm Stroud MD /LEONIDAS
== END ==
LOC: M.PC 07-17 08:30
DX: M54.5 Low back pain (principal); G89.29 Other chronic pain; F41.9 Anxiety disorder, unspecified; I10 Essential (primary) hypertension; E78.5 Hyperlipidemia, unspecified; I25.10 Atherosclerotic heart disease of native coronary artery without angina pectoris

== ENCOUNTER → 2018-08-12 | Outpatient (CLI) | payer OTHER ==
[~2018-08-12] MED LIST changes: +HYDROCODON-ACE1 EAC5 PO
--- NOTE | 2018-09-02 08:30 | PAINCON ---
[address] [address] PAIN MANAGEMENT CONSULTATION Name: MUSAORLY Danial Room: [facility]#: [id number] Admission: 08/12/18 Attend Phys: Elba Stroud MD Discharge: Date of : 58 Report #: [id number] THIS REPORT FOR: //name// CC: Chrissy Stroud DATE OF SERVICE: 08/12/2018 PRIMARY CARE PHYSICIAN: Chrissy Hodge MD CHIEF COMPLAINT: Pain in the low back area with pain down into the low back. I would like to have trigger point injections today. HISTORY: The patient is a 58-year-old gentleman who has been followed in the pain clinic because of chronic pain. He has chronic low back pain. He has returned today for renewal of his medications. He states that he is interviewing for a new position. He has been off work since May. 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 He is receiving unemployment insurance unemployment wages. He has been given a job offer by someone he knew in the past. He is hopeful that this will come through. He has been noticing some pitting edema in the lower portion of his legs bilaterally. This has been more problematic over the last 3 months. He has not followed up with his primary care physician. ALLERGIES: TETANUS. CURRENT MEDICATIONS: Duloxetine 30 mg, lisinopril 20 mg, Lipitor 40 mg, gabapentin 600 mg q.i.d., alprazolam 1 mg b.i.d., venlafaxine 75 mg, hydrocodone 10/325, atenolol, chlorthalidone. PAIN CLINIC ASSESSMENT/PQRS: 1. The patient is not being treated for rheumatoid arthritis or osteoarthritis. 2. Height 5 feet 10 inches, weight 241 pounds, BMI is 34.7. 3. Vital Signs. Blood pressure 153/78, heart rate 66, respiratory rate 16, room air saturation 93%, temperature is 97.5. 4. Pain score 8/10. 5. Fall history: The patient has not fallen in the last 3 months. 6. Blood thinner. The patient is not on a blood thinning medication. 7. Opioid greater than 6 weeks. The patient [facility] his [facility]. 8. Risk assessment tool, low for opioid abuse. 9. Functional assessment tool. 10. Tobacco: The patient denies use of tobacco. The patient did smoke about half pack of cigarettes per day. We discussed the benefits of smoking cessation. 11. Alcohol: The patient denies use of alcoholic beverages [place] [address] PAIN MANAGEMENT CONSULTATION Name: ORLY VIGIL Room: [facility]#: [id number] Admission: 08/12/18 Attend Phys: Elba Stroud MD Discharge: Date of : 58 Report #: [id number] PHYSICAL EXAMINATION: GENERAL: The patient is a well-developed, well-nourished white male, appears his stated age. He is alert and oriented x 3. His affect is appropriate. Speech is fluent. HEENT: Normocephalic, atraumatic. Extraocular eye muscles intact. Sclerae nonicteric. Mucous membranes are moist. NECK: Without adenopathy or JVD. HEART: Regular rate. S1, S2. ABDOMEN: Nontender. Bowel sounds present. LUNGS: Clear to auscultation without rhonchi or rales. EXTREMITIES: Upper extremity muscle strength judged to be 5-/5 for the major muscle groups in the lower extremity. The patient has pain and discomfort in the low back area in the right and left paraspinous muscle areas. Palpation in these areas did reproduce a significant component of the patient's pain. The patient has +1 to +2 pitting edema to the midcalf area. IMPRESSION: 1. Myofascial pain history with trigger points in the lower back. 2. Anxiety. 3. Hypertension. 4. Hyperlipidemia. 5. Coronary artery disease. 6. Pitting edema in the lower extremities. RECOMMENDATIONS: We discussed treatment options with the patient. At this juncture, he states that he has been using the gabapentin for quite some time. We will have the patient stop the Meloxicam. The nonsteroidal anti-inflammatory medications have been known to cause some swelling in lower extremities. We will also have the patient stop using 325 mg of aspirin and decrease it two 81 mg tablets. Hopefully, this will help with the lower extremity edema and this will subside. We discussed the use of compression stockings to the lower extremity. We explained the possible etiology of swelling, which could be some problems with his heart or renal function. He should probably follow up with his primary physician and undergo testing should his problem remained. Next medication we would consider decreasing would be the gabapentin. This has been known to cause some lower extremity edema. The patient states that he has been taking this for quite some time, so this may not be the etiology of the swelling. A script for his medications has been rewritten. We would like to thank you for letting us participate in his care. We hope he continues to improve. PROCEDURE NOTE ADDENDUM [address] [place] [address] PAIN MANAGEMENT CONSULTATION Name: ORLY VIGIL Room: [facility]#: [id number] Admission: 08/12/18 Attend Phys: Elba Stroud MD Discharge: Date of : 58 Report #: [id number] The patient is a 58-year-old gentleman who has been seen in the pain clinic. He suffers from myofascial pain. He has returned today. He is having pain in lower portion of his back. We discussed the retreatment options. We will proceed with a trigger point injection to the lower back area, which have been beneficial to him in the past. He is in agreement. He was taken to the procedure area. He will stay unassisted in getting on the examination table. His back was sterilely prepped with a Betadine solution and allowed to dry. A chair was placed under his feet. He leans forward on the bed as he sat perpendicular. His back was sterilely prepped with a Betadine solution, which was allowed to dry. The left and right posterior superior iliac spine areas were tender with no noted trigger points. PROCEDURE NOTE: The right trigger point area was sterilely prepped. A 0.25% bupivacaine had been infiltrated into this area. A 25-gauge needle was advanced into the area of the trigger point near the gluteus ruben and the latissimus dorsi. Aspiration was negative. Total of 60 mg of triamcinolone was injected into the right trigger point. A total of 8 mL of 0.25% bupivacaine was injected as well. The contralateral side was treated in a like fashion. The area had been sterilely prepped with a chlorhexidine solution. A 25-gauge needle was then advanced into the area of the trigger point. There was no bleeding or complaints with aspiration. A total of 8 mL of 0.25% bupivacaine and 60 mg of triamcinolone was injected. The patient tolerated the procedure well. The patient's pain was recorded at 6/10 at the time of discharge. RECOMMENDATIONS: He will return to the pain clinic as needed. A script for his medications have been written. DIAGNOSIS: Myofascial pain, low back area. <ELECTRONICALLY SIGNED> By: Elba Stroud MD 09/02/18 0830 [id number]. Gm Storud MD /[facility]
== END | disposition home or self-care (01) ==
LOC: M.PC 04:28
DX: M79.18 Myalgia, other site (principal); Z88.8 Allergy status to other drugs, medicaments and biological substances; Z79.899 Other long term (current) drug therapy; F41.9 Anxiety disorder, unspecified; I10 Essential (primary) hypertension; E78.5 Hyperlipidemia, unspecified; I25.10 Atherosclerotic heart disease of native coronary artery without angina pectoris

== ENCOUNTER → 2018-10-14 | Outpatient (CLI) | payer OTHER ==
--- NOTE | ~2018-10-14 | PAINCON ---
[address] [address] PAIN MANAGEMENT CONSULTATION Name: ORLY VIGIL JR Room: [facility].#: [id number] Admission: 10/14/18 Attend Phys: Elba Stroud MD Discharge: Date of : 58 Report #: [id number] THIS REPORT FOR: //name// CC: Chrissy Stroud DATE OF SERVICE: 10/14/2018 FOLLOWUP COMPLAINT: Here for medications. HISTORY: The patient is a 58-year-old gentleman, who has been followed in the pain clinic because of chronic myofascial back pain. He rates his pain today as an 8/10. He is having pain in his mid back as well as the upper and lower portion of his back. He has had pain for a number of years. He has some concerns and feels may be an MRI might be beneficial. 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 He feels that his medications were helpful and enable him to continue to be working in a full capacity. He has had some tremors in his hands, worse on the left than the right. These have become more prominent over the last couple of months. He is not sure exactly what their causes are. There are of some concern to him because of the newness of their onset. He notes that pain is worse with walking, standing, bending, and lifting. He notes that the medications continue to be helpful. CURRENT MEDICATIONS: Duloxetine 30 mg, lisinopril 20 mg, Lipitor 40 mg, gabapentin 600 mg q.i.d., alprazolam 1 mg b.i.d., venlafaxine 75 mg, hydrocodone 10/325, atenolol, and chlorthalidone. ALLERGIES: TETANUS. PAIN CLINIC ASSESSMENT AND PQRS: 1. The patient is not being treated for rheumatoid arthritis or osteoarthritis. 2. Pain intensity is 8/10. 3. Fall history. The patient has not fallen in the last 3 months. 4. Blood thinner. The patient is not on a blood thinning medication. 5. Opioids greater than 6 weeks. The patient receives medications through the pain clinic. 6. Risk assessment tool, low for opioid use. 7. Functional assessment tool. 8. Recreational drug use. The patient denies use of recreational drugs. 9. Tobacco. The patient continues to smoke cigarettes. Again, we discussed the benefits of smoking cessation. 10. Alcohol: The patient denies chronic use of alcoholic beverages. PHYSICAL EXAMINATION: GENERAL: The patient is a well-developed, well-nourished white male. He appears his stated age. He is alert and oriented x 3[place] [address] PAIN MANAGEMENT CONSULTATION Name: ORLY VIGIL JR Room: [facility] Rich#: [id number] Admission: 10/14/18 Attend Phys: Elba Stroud MD Discharge: Date of : 58 Report #: [id number] appropriate. Speech is fluent. Height is 5 feet 10 inches, weight is 233 pounds, and BMI is 33. VITAL SIGNS: Blood pressure is 135/82, heart rate is 70, respiratory rate is 18, room air saturation is 96%, and temperature is 97.8. HEENT: Normocephalic, atraumatic. Extraocular eye muscles intact. Sclerae nonicteric. Mucous membranes are moist. NECK: Without adenopathy or JVD. HEART: Regular rate. S1, S2. ABDOMEN: Nontender. Bowel sounds present. LUNGS: Clear to auscultation without rhonchi or rales. EXTREMITIES: Upper extremity muscle strength is judged to be 5-/5 for the major muscle groups. The patient has pain and discomfort in the lower portion of his back as well as pain in the right paraspinous muscle area. Palpation in the low back area near the posterior superior iliac spine areas and gluteus ruben do continue to emanate pain. IMPRESSION: 1. Myofascial pain with history of trigger points in the lower back. 2. Anxiety. 3. Hypertension. 4. Hyperlipidemia. 5. Coronary artery disease. 6. Pitting edema in the lower extremity. 7. Onset of tremors in the hands, worsen on the left side over the last couple of months. RECOMMENDATIONS: We have discussed treatment options with the patient. At this juncture, we will continue with his medications. I think that Mobic continues to be helpful. We discussed the reason for medications like Flexeril. We expressed the need to limit the use of opioid medications given that they are sometimes could not be as effective in chronic pain secondary to development of tolerance. The patient feels that the medication is beneficial and would like to continue with it's use. We will renew his medications. A script for hydrocodone 10/325 one p.o. 5 times daily has been written. We explained to the patient that elevation of the opioid medications are limited at his present dose. He will continue with tizanidine 4 mg 1 p.o. q.i.d. as needed. He will call us if he has any concerns. We would like to thank you for letting us to participate in his care. We hope he continues to improve. By: [id number]. Gm Stroud MD /LEONIDAS
== END ==
LOC: M.PC 10-07 08:30
DX: G89.29 Other chronic pain (principal); M79.18 Myalgia, other site; I10 Essential (primary) hypertension; I25.10 Atherosclerotic heart disease of native coronary artery without angina pectoris; E78.5 Hyperlipidemia, unspecified; F17.210 Nicotine dependence, cigarettes, uncomplicated; F41.9 Anxiety disorder, unspecified; Z88.7 Allergy status to serum and vaccine; Z79.899 Other long term (current) drug therapy; Z79.891 Long term (current) use of opiate analgesic

== ENCOUNTER → 2018-12-09 | Outpatient (CLI) | payer OTHER ==
[~2018-12-09] MED LIST changes: +NITROGLYCERIN0.4 MG SUBLING
--- NOTE | ~2018-12-09 | PAINCON ---
[address] [address] PAIN MANAGEMENT CONSULTATION Name: ORLY VIGIL JR Room: [facility]#: [id number] Admission: 12/09/18 Attend Phys: Elba Stroud MD Discharge: Date of : 58 Report #: [id number] THIS REPORT FOR: //name// CC: Chrissy Stroud DATE OF SERVICE: 12/09/2018 PROCEDURE NOTE: The patient was taken to the procedure area. Again, we discussed the risks and benefits of trigger point injections. They include ____, no improvement in pain clinic, exacerbation of pain, possible pneumothorax and the patient elects to proceed. The patient was placed in the sitting position. He is perpendicular to the bed. A chair was placed under his feet. The patient leaned forward. His back was sterilely prepped in the lower area with 0.25% bupivacaine. His back was sterilely prepped with a chlorhexidine solution. A 25-gauge needle was then advanced into the left posterior superior iliac spine area. Aspiration was negative. A total of 5 mL of 0.5% bupivacaine and 40 mg Depo-Medrol was injected. The right posterior superior iliac spine area was treated in a like fashion. Trigger point #2, a 25-gauge needle was then advanced into the area of the trigger point. The muscles that were in that injected where the right gluteus ruben and right latissimus dorsi area near the posterior superior iliac spine. The same muscle group was injected on the left side. A total of 5 mL of 0.5% bupivacaine and 40 mg Depo-Medrol was injected. The patient tolerated that first dose to trigger points well. He had pain and discomfort in the right rhomboid area. Palpation in this area did reproduce his discomfort. We explained to the patient the possibility of a pneumothorax with hospitalization with chest tubes in place, should he develop pneumothorax. He elected to proceed. This area was sterilely prepped with a chlorhexidine solution. A 25-gauge needle was then advanced into the area of the rhomboid with a trigger point identified. Aspiration was negative. No ____. The patient was then injected with 5 mL of 0.5% bupivacaine and 40 mg triamcinolone. The patient tolerated the procedure well. He remained in the Pain Clinic for an appropriate amount of time. He will follow up in the future as needed. We would like to thank you for letting us participate in his care. We hope he continues to improve. By: [id number]. Gm Stroud MD /anish
--- NOTE | 2018-12-10 14:27 | PAINCON ---
[address] [address] PAIN MANAGEMENT CONSULTATION Name: ORLY VIGIL JR Room: [facility]#: [id number] Admission: 12/09/18 Attend Phys: Elba Stroud MD Discharge: Date of : 58 Report #: [id number] THIS REPORT FOR: //name// CC: Chrissy Stroud DATE OF SERVICE: 12/09/2018 CHIEF COMPLAINT: "Here for medication renewal and I would like to have the trigger point injections." HISTORY: The patient is a 58-year-old gentleman who has been followed in the Pain Clinic because of chronic myofascial pain. He has continued to have pain and discomfort in the low back area. He has started a new job. He feels that the pain in the lower portion of her back improved after the trigger point injections, but has started to reoccur. Also he has some pain and discomfort in the right shoulder area near the mid portion on the right side. Movement exacerbates this discomfort. He has noted some swelling of his ankles. He notes that walking, standing, and certain activities such as leaning and bending can exacerbate his discomfort. He has returned today for trigger point injections as well as renewal of his medications. CURRENT MEDICATIONS: Duloxetine 30 mg, lisinopril 20 mg, Lipitor 40 mg, gabapentin 600 mg q.i.d., alprazolam 1 mg b.i.d., venlafaxine 75 mg, hydrocodone 10/325, atenolol, chlorthalidone. ALLERGIES: TETANUS. PAIN CLINIC ASSESSMENT AND PQRS: 1. The patient is not being treated for rheumatoid arthritis or osteoarthritis. 2. Height 5 feet 11 inches, weight 223 pounds, BMI is 32. 3. Vital signs: Blood pressure 134/85, heart rate 80, respiratory rate 16, room air saturation 96%, temperature 98.0. 4. Pain intensity: 6/10 5. Fall history: The patient has not fallen in the last 3 months. 6. Blood thinner: The patient is not on a blood thinning medication. 7. Hypertension: The patient is being treated for hypertension. 8. Opioids greater than 6 weeks: The patient has received medications through the Pain Clinic for pain control. 9. Risk assessment tool: Low for opioid use. 10. Functional assessment tool. 11. Recreational drug use: The patient denies use of recreational drugs. 12. Tobacco: The patient. 13. Alcohol: The patient denies chronic use of alcoholic beverages. PHYSICAL EXAMINATION: [address] [place] [address] PAIN MANAGEMENT CONSULTATION Name: ORLY VIGIL JR Room: [facility]#: [id number] Admission: 12/09/18 Attend Phys: Elba Stroud MD Discharge: Date of : 58 Report #: [id number] GENERAL: The patient is a well-developed, well-nourished, white male. Appears his stated age. He is alert and oriented x 3. His affect is appropriate. Speech is fluent. HEENT: Normocephalic, atraumatic. Extraocular eye muscles intact. Sclerae nonicteric. Mucous membranes are moist. NECK: Without adenopathy or JVD. HEART: Regular rate. S1 and S2. LUNGS: Clear to auscultation. MUSCULOSKELETAL: Upper extremity muscle strength is judged to be 5-/5 for the major muscle groups in the upper extremity. Lower extremity muscle strength is judged to be 5/5 for the major muscle groups in the lower extremity. The patient has pain and discomfort in the left and right posterior superior iliac spine areas. Palpation in this area does reproduce a component of the patient's pain and discomfort. He also has pain and discomfort in the area of the right rhomboid. Palpation in this area does reproduce pain and discomfort, which the patient states is the pain that he has been experiencing. IMPRESSION: 1. Myofascial pain, history of trigger point injection in the lower back. 2. Anxiety/panic attacks. 3. Hypertension. 4. Hyperlipidemia. 5. Coronary artery disease. 6. History of pitting edema in the lower extremity. 7. Onset of tremors in his hand, worse on the left side over the last couple of months. RECOMMENDATIONS: We discussed treatment options with the patient. At this juncture, we will continue with his medications. He feels his medications are helpful, he would like to continue their use. He also feels that the trigger points were beneficial and has some triggerpoint up in the upper right shoulder area. He would like to have this area evaluated and injected. He feels overall that things are going reasonably well. Life is getting better and that he is now gainfully employed. He still is living with his daughter and son-in-law. They have 2 children, 3 years old and 7 years old, sometimes the amount of noise and turbulence that they cause make him somewhat uncomfortable. Overall, things are going reasonably well. He feels that his medications are helpful. He continues to take hydrocodone as described. He is aware that opioid medications can be problematic. He is aware that over a long period of time, they may lose their effectiveness secondary to development of tolerance. He feels that meloxicam is helpful, he takes it daily. He is not having any GI complaints. He feels that the muscle relaxant, tizanidine, is beneficial as well and would like to continue its use. Overall, they provide a 40% improvement in his pain control, he would like to continue them. A script for these medications have been written. He will continue with the meloxicam 15 mg 1 p.o. daily, tizanidine 4 mg q.i.d., and the patient will also continue with hydrocodone [address] [place] [address] PAIN MANAGEMENT CONSULTATION Name: ORLY VIGIL JR Room: [facility]#: [id number] Admission: 12/09/18 Attend Phys: Elba Stroud MD Discharge: Date of : 58 Report #: [id number] mg 1 p.o. 5 times daily. We would like to thank you for letting us participate in his care. We hope he continues to improve. <ELECTRONICALLY SIGNED> By: Elba Stroud MD 12/10/18 1427 [id number]. Gm Stroud MD /nt
== END | disposition home or self-care (01) ==
LOC: M.PC 05:09
DX: M79.18 Myalgia, other site (principal); G89.29 Other chronic pain; I10 Essential (primary) hypertension; E78.5 Hyperlipidemia, unspecified; I25.10 Atherosclerotic heart disease of native coronary artery without angina pectoris; Z98.890 Other specified postprocedural states; Z88.8 Allergy status to other drugs, medicaments and biological substances; Z79.899 Other long term (current) drug therapy; Z79.891 Long term (current) use of opiate analgesic; Z79.82 Long term (current) use of aspirin

== ENCOUNTER → 2019-02-03 | Outpatient (CLI) | payer OTHER ==
--- NOTE | ~2019-02-03 | PAINCON ---
[address] [address] PAIN MANAGEMENT CONSULTATION Name: ORLY VIGIL JR Room: [facility]#: [id number] Admission: 02/03/19 Attend Phys: Elba Stroud MD Discharge: Date of : 58 Report #: [id number] THIS REPORT FOR: //name// CC: Chrissy Stroud DATE OF SERVICE: 02/03/2019 CHIEF COMPLAINT: Things are going pretty well. I have had some increased pain. I fell on my dog, but did not need to look to the doctor. HISTORY: The patient is a 58-year-old gentleman, who has been followed in the pain clinic. He has a history of chronic pain. It is myofascial. He has also had some discomfort primarily in the lower portion of his back. He does have somewhat of physical job. This does increase the pain and discomfort he has been experiencing. He has noticed an increase in his activity. Feels that he is trying to slow down in his job and rest more often. He generally wakes up with pain. Rates his pain as an 8/10 at this point. He feels that his medications of meloxicam and Maupin are helpful. He would like to continue their use. Feels that this is about 30% improved with use of his medications. Notes that the increased humidity walking, sitting, standing, lifting and bending activities which have increased his discomfort. Notes the pain is worse with any prolonged activity. Finds climbing stairs challenging. CURRENT MEDICATIONS: Duloxetine 30 mg, lisinopril 20 mg, Lipitor 40 mg, gabapentin 600 mg q.i.d., alprazolam 1 mg b.i.d., venlafaxine 75 mg, hydrocodone 10/325, atenolol, and chlorthalidone. ALLERGIES: TETANUS. PAIN CLINIC ASSESSMENT AND PQRS: 1. The patient is not being treated for rheumatoid arthritis or osteoarthritis. 2. Height 5 feet 11 inches, weight 227 pounds, BMI is 32.6. 3. Vital signs: Blood pressure 148/88, heart rate 66, respiratory rate 16, room air saturation 97%, and temperature 98.5. 4. Pain intensity 8/10. 5. Fall history: The patient did fall in regards to his dog. He did not need medical attention. 6. Blood thinner. The patient is not on a blood thinning medication. 7. Hypertension. The patient is being treated for hypertension. 8. Opioids greater than 6 weeks. The patient receives his medications from the pain clinic. 9. Risk assessment tool, low for opioid use. 10. Functional assessment tool. 11. Recreational drug use. The patient denies use of recreational drugs. 12. Tobacco: The patient stopped smoking ____ 2019. [place] [address] PAIN MANAGEMENT CONSULTATION Name: ORLY VIGIL JR Room: [facility]#: [id number] Admission: 02/03/19 Attend Phys: Elba Stroud MD Discharge: Date of : 58 Report #: [id number] 13. Alcohol: The patient drinks an alcoholic beverage daily. PHYSICAL EXAMINATION: GENERAL: The patient is a well-developed, well-nourished white male. Appears his stated age. He is alert and oriented x 3. His affect is appropriate. Speech is fluent. HEENT: Normocephalic, atraumatic. Extraocular eye muscles intact. Sclerae nonicteric. Mucous membranes are moist. NECK: Without adenopathy or JVD. HEART: Regular rate. S1, S2. LUNGS: Clear to auscultation. MUSCULOSKELETAL: Upper extremity muscle strength judged to be 5/5 for the major muscle groups in the upper extremity. Lower extremity muscle strength judged to be 5/5 for the major muscle groups. The patient walks with a slow gait. Has some pain and discomfort in the lower portion of his back in the posterior iliac areas. IMPRESSION: 1. Myofascial pain. History of trigger point injections in the lower back. 2. Anxiety/panic attacks. 3. Hypertension. 4. Hyperlipidemia. 5. Coronary artery disease. 6. History of pitting edema in the lower extremity. 7. Onset of tremors in his hands, worse on the left side. RECOMMENDATIONS: We discussed treatment options with the patient. At this juncture, we will continue with his medications. He finds his medications continue to be helpful. He is aware that opioid medications can be problematic with some patients. He feels that the medication is helpful. He is able to continue to be gainfully employed with less pain and discomfort. He is taking medication as prescribed. He would like to have the medications renewed. He is aware that medications can become less effective over a period of time secondary to development of tolerance. Keeps his medications in a guarded area. He feels that the meloxicam does not cause any GI problems at this juncture. He feels that tizanidine is helpful with the muscle spasms. We will continue with hydrocodone 10 mg one p.o. every 4 hours, a total of 150 tablets. We would like to thank you for letting us participate in his care. We hope he continues to improve. By: [id number]. MD hakan Lester
== END ==
LOC: M.PC 04:51
DX: M79.18 Myalgia, other site (principal); G89.29 Other chronic pain; I10 Essential (primary) hypertension; I25.10 Atherosclerotic heart disease of native coronary artery without angina pectoris; F41.9 Anxiety disorder, unspecified; Z79.899 Other long term (current) drug therapy; Z79.891 Long term (current) use of opiate analgesic; Z88.7 Allergy status to serum and vaccine

== ENCOUNTER → 2019-04-02 | Outpatient (CLI) | payer OTHER ==
--- NOTE | 2019-04-20 13:25 | PAINCON ---
[address] [address] PAIN MANAGEMENT CONSULTATION Name: ORLY VIGIL JR Room: [facility].#: [id number] Admission: 04/02/19 Attend Phys: Elba Stroud MD Discharge: Date of : 58 Report #: [id number] THIS REPORT FOR: //name// CC: Chrissy Stroud DATE OF SERVICE: 04/02/2019 CHIEF COMPLAINT: Pain in the neck, midback, low back, tailbone and knees. HISTORY: The patient is a 59-year-old gentleman who has been followed in the pain clinic because of chronic pain. He continues to have pain in the lower portion of his back. Certain movements exacerbate this discomfort. He has had trigger point injections in the past and found that they were beneficial. He has had some problems with his lower extremities. Note some swelling in his left and right knee. He has been wearing a brace on the left side. He notes that activities of daily living can be more problematic. He is quite mobile on his job. States that he had x-ray of his knees at [facility]. He was told that he has some bone spurs as well as some slight amount of effusion in his knee, left was worse than right. The patient also feels that he is having more difficulty with his memory. Feels that some of the easy to remember items are more problematic at this juncture. He has been using meloxicam and feels that medication in conjunction with the muscle relaxant tizanidine are helpful. He has been using gabapentin. Feels it is beneficial as well. He has been using the [place] to help with pain control as well. Exacerbating factors are walking, sitting, standing, bending and lifting. Notes that use of his medication as well as rest can be helpful. ALLERGIES: TETANUS. CURRENT MEDICATIONS: Duloxetine 30 mg, lisinopril 20 mg, Lipitor 40 mg, gabapentin 600 mg q.i.d., alprazolam 1 mg b.i.d., venlafaxine 75 mg, hydrocodone 10/325 q. 4-6 hours p.r.n., atenolol, chlorthalidone. PAIN CLINIC ASSESSMENT AND PQRS: 1. The patient has osteoarthritic changes in his knees. He is not being seen or treated for rheumatoid arthritis. 2. Height 5 feet 10 inches, weight 235 pounds, BMI is 33. 3. Vital Signs: Blood pressure 149/99, heart rate 59, respiratory rate 20, room air saturation 96%, temperature 97.9. 4. Pain intensity 9/10 today because of swelling in his leg and knee. Pain in the low back. 5. Fall risk. The patient has fallen since we saw him last. States that he fell upstairs. He was walking down stairs and [place] [address] PAIN MANAGEMENT CONSULTATION Name: ORLY VIGIL JR Room: [facility]#: [id number] Admission: 04/02/19 Attend Phys: Elba Stroud MD Discharge: Date of : 58 Report #: [id number] turned to talk to her and his feet became intertwined and he fell upstairs. 6. Blood thinner. The patient is not on a blood thinning medication. 7. History of hypertension. The patient is being treated for hypertension. 8. Opioids greater than 6 weeks. The patient received medication from one source, pain clinic. 9. Risk assessment tool, low for opioid use. 10. Functional assessment tool. 11. Recreational drug use. The patient denies use of recreational drugs. 12. Tobacco: The patient states that he is vaping. 13. Alcohol. The patient denies other than occasional beer daily. PHYSICAL EXAMINATION: GENERAL: The patient is a well-developed, well-nourished white male. Appears his stated age. He is alert and oriented x 3. His affect is appropriate. Speech is fluent. HEENT: Normocephalic, atraumatic. Extraocular eye muscles intact. Sclerae nonicteric. Mucous membranes are moist. NECK: Without adenopathy or JVD. HEART: Regular rate. LUNGS: Clear to auscultation. MUSCULOSKELETAL: Upper extremity muscle strength judged to be 5/5 for the major muscle groups in the upper extremity. Lower extremity, the patient has pain and discomfort in the left posterior superior iliac spine area in the right posterior superior iliac spine areas. Palpation in these areas can reproduce pain and discomfort, which the patient retracts from. The patient has a slow gait. He has some swelling and discomfort in the left knee. Does have a brace in place. IMPRESSION: 1. Myofascial pain. 2. History of trigger point injections, improved with these in the past. 3. Anxiety/panic attacks. 4. Hypertension. 5. Hyperlipidemia. 6. Coronary artery disease. 7. History of pitting edema in the lower extremity. 8. Onset of tremors in his hand, worse on the left side. 9. Some concern about decreasing memory. RECOMMENDATIONS: We discussed treatment options with the patient. At this juncture, he feels that his low back area is quite problematic. He would like to undergo trigger point injections. Those have proven beneficial in the past. He has had no complications from their use. He is still having pain in his left knee. States that he had an x-ray. The results of which he does not have. He underwent x-ray imaging at [facility]. He will bring the findings with him at the next visit. We will proceed with an [place] [address] PAIN MANAGEMENT CONSULTATION Name: ORLY VIGIL JR Room: [facility]#: [id number] Admission: 04/02/19 Attend Phys: Elba Stroud MD Discharge: Date of : 58 Report #: [id number] Risks and benefits of the procedure were discussed. They include but are not limited to infection, worsening pain, nerve damage, increased muscle discomfort. We will also continue with the patient's current opioid use. A script for his medications of hydrocodone has been rewritten. He will also continue with meloxicam 15 mg 1 p.o. b.i.d. We have explained to the patient the reason for only taking one nonsteroidal anti-inflammatory medications with good effect on his GI tract as well as kidney function. The patient will also continue with tizanidine 4 mg 1 p.o. q.i.d. as needed. PROCEDURE NOTE: The patient was taken to the procedure area. He was then assisted in getting on the examination table. His back was sterilely prepped with a Betadine solution. He was sitting perpendicular to the table. A chair was placed under his feet. The patient leaned forward as though he were going to tie his shoe. His back was sterilely prepped with a chlorhexidine solution. He tolerated the procedure well. A 25-gauge needle was then advanced into the left side in the area of the posterior superior iliac spine near the gluteus urben and latissimus dorsi. Aspiration was negative. The patient did not have complaints of any radicular pain during the procedure. A total of 40 mg Depo-Medrol, 20 mg triamcinolone was injected on the left side. The contralateral side on the right was treated in a like fashion. A 25-gauge needle was advanced in the area of the gluteus ruben and latissimus dorsi. A trigger point was noted. A 25-gauge needle was advanced. There was no radicular pain. Aspiration was negative. A total of 40 mg Depo-Medrol and 20 mg triamcinolone with 8 mL of 0.5% bupivacaine was injected. The patient tolerated the procedure well. He remained in the pain clinic for an appropriate amount of time. He will follow up in the future as needed. We would like to thank you for letting us participate in his care. We hope he continues to improve. Total of two trigger points were injected. <ELECTRONICALLY SIGNED> By: Elba Stroud MD 04/20/19 1325 [id number]. Gm Stroud MD /nt
== END | disposition home or self-care (01) ==
LOC: M.PC 01:04
DX: M79.18 Myalgia, other site (principal); G89.29 Other chronic pain; I10 Essential (primary) hypertension; E78.5 Hyperlipidemia, unspecified; F41.9 Anxiety disorder, unspecified; I25.10 Atherosclerotic heart disease of native coronary artery without angina pectoris; Z98.890 Other specified postprocedural states; Z79.899 Other long term (current) drug therapy; Z88.8 Allergy status to other drugs, medicaments and biological substances; Z79.891 Long term (current) use of opiate analgesic

== ENCOUNTER → 2019-05-28 | Outpatient (CLI) | payer OTHER ==
--- NOTE | ~2019-05-28 | PAINCON ---
[address] [address] PAIN MANAGEMENT CONSULTATION Name: ORLY VIGIL JR Room: [facility]#: [id number] Admission: 05/28/19 Attend Phys: Elba Stroud MD Discharge: Date of : 58 Report #: [id number] THIS REPORT FOR: //name// CC: Chrissy Stroud DATE OF SERVICE: 05/28/2019 PRIMARY CARE PHYSICIAN: Dr. Chrissy Hodge. CHIEF COMPLAINT: Chronic low back pain, medication is still helpful. HISTORY: The patient is a 59-year-old gentleman who has been followed in the pain clinic because of chronic back pain as well as myofascial pain. He returns today for renewal of his medications. He feels that the hydrocodone medication is helpful. He remains gainfully employed with less pain with his medications. They are not affecting his ability to think clearly. He also is using the meloxicam. He is not complaining of any GI problems. He feels that the tizanidine medication helps with his muscle spasms. He feels that he has some bone spurs and has noted some increased pain and discomfort in the area of his knees. He notes that the right leg is problematic, left leg is . He is scheduled to see orthopedic surgeon. ALLERGIES: TETANUS. CURRENT MEDICATIONS: Duloxetine 30 mg, lisinopril 20 mg, Lipitor 40 mg, gabapentin 600 mg four times a day, alprazolam 1 mg b.i.d., and venlafaxine 75 mg ADDENDUM PAIN CLINIC ASSESSMENT/PQRS: 1. The patient has osteoarthritis in his knees. He is not being treated for rheumatoid arthritis. 2. Height 5 feet 10, weight 233 pounds, BMI is 33.5. 3. Blood pressure 156/102, heart rate 63, respiratory rate 18, room air saturation 96%, and temperature 97.6. 4. Pain intensity 7-8/10. 5. Fall history: The patient has not fallen since we saw him last. 6. Blood thinner. The patient is not on a blood thinning medication. 7. Hypertension. The patient is being treated for hypertension. 8. Blood thinner. The patient is not on a blood thinning medication. 9. Opioids greater than 6 weeks. The patient received medication from one source the pain clinic. 10. Risk assessment tool, [place] [address] PAIN MANAGEMENT CONSULTATION Name: ORLY VIGIL JR Room: [facility]#: [id number] Admission: 05/28/19 Attend Phys: Elba Stroud MD Discharge: Date of : 58 Report #: [id number] 11. Functional assessment tool. 12. Recreational drug use: The patient denies. 13. Tobacco: The patient states that he does vape. 14. Alcohol: The patient occasionally drinks alcoholic beverages. PHYSICAL EXAMINATION: GENERAL: The patient is a well-developed, well-nourished white male. Appears his stated age. He is alert and oriented x 3. His affect is appropriate. Speech is fluent. HEENT: Normocephalic, atraumatic. Extraocular eye muscles intact. Sclerae nonicteric. NECK: Without adenopathy or JVD. HEART: Regular rate. ABDOMEN: Nontender. MUSCULOSKELETAL: Upper extremity muscle strength judged to be 5/5 for the major muscle groups in the upper extremity. The patient has pain and discomfort in his low back area. Has pain and discomfort in the knees bilaterally. The patient has a slow ambulating gait. Complains of pain and discomfort in the knees on both sides. Has complains of some swelling in his knees. More painful and sensitive around the left knee in the infrapatellar area. The patient has some swelling and discomfort on the right side, but not near as problematic as the left. IMPRESSION: 1. Bilateral knee pain. 2. Myofascial pain. 3. Anxiety/panic attacks. 4. Hypertension. 5. Hyperlipidemia. 6. Coronary artery disease. 7. History of pitting edema in the lower extremities. 8. History of tremors in his hands, left side more problematic than the right. RECOMMENDATIONS: We discussed treatment options with the patient. At this juncture, we will continue with his medication management. He is having some pain and discomfort in his heel and his knees. I think it would be reasonable for him to see orthopedic surgeon regarding the knees. There is some crepitance and feeling of [id number] rubbing in his left knee more so than the right. Possibility of surgical intervention may be an option. A script for his medications has been provided. The patient will continue with the hydrocodone 10 mg one p.o. q. 4-6 hours, total of 150 tablets have been released. The patient will also continue with meloxicam 15 mg daily. He will continue with the Zanaflex to help with pain and discomfort and muscle spasms. Total of 4 times daily use has been provided. The patient will call us if [place] [address] PAIN MANAGEMENT CONSULTATION Name: ORLY VIGIL JR Room: [facility]#: [id number] Admission: 05/28/19 Attend Phys: Elba Stroud MD Discharge: Date of : 58 Report #: [id number] We would like to thank you for letting us participate in his care. We hope he continues to improve. By: [id number]. Gm Stroud MD /anish
== END ==
LOC: M.PC 04:45
DX: Z76.0 Encounter for issue of repeat prescription (principal); M25.561 Pain in right knee; M25.562 Pain in left knee; I10 Essential (primary) hypertension; E78.5 Hyperlipidemia, unspecified; I25.10 Atherosclerotic heart disease of native coronary artery without angina pectoris; F41.9 Anxiety disorder, unspecified; Z79.891 Long term (current) use of opiate analgesic; Z88.6 Allergy status to analgesic agent; Z79.899 Other long term (current) drug therapy

== ENCOUNTER → 2019-07-23 | Outpatient (CLI) | payer OTHER ==
--- NOTE | 2019-08-05 09:12 | PAINCON ---
[address] [address] PAIN MANAGEMENT CONSULTATION Name: ORLY VIGIL JR Room: [facility]#: [id number] Admission: 07/23/19 Attend Phys: Elba Stroud MD Discharge: Date of : 58 Report #: [id number] THIS REPORT FOR: //name// cc: Chrissy Hodge MD, Katrina MD ~ THIS REPORT FOR: //name// CC: Chrissy Stroud DATE OF SERVICE: 07/23/2019 PRIMARY CARE PHYSICIAN: Chrissy Hodge MD CHIEF COMPLAINT: Pain in the low back area, would like to have an injection. HISTORY: The patient is a 59-year-old gentleman who has been followed in the pain clinic. As you recall, he does have chronic pain in his back. He suffers from myofascial pain. Injections in the past have been beneficial. He has noticed an increase in pain in the low back area and mid back area. He has had his knee injected. He feels that that has been helpful. This was provided by his orthopedic surgeon. He feels that his low back pain is limiting his ability to engage in activities. He does have a pretty physical job. He notes that the cold weather has had some impact on his discomfort. Walking, sitting, standing, bending are more problematic because of the pain in his low back area. He would like to proceed with an injection today. ALLERGIES: TETANUS SHOT. CURRENT MEDICATIONS: Duloxetine 30 mg, lisinopril 20 mg, Lipitor 40 mg, gabapentin 600 mg 4 times daily, alprazolam 1 mg b.i.d., venlafaxine 75 mg, and hydrocodone 10/325. The patient did note some swelling with gabapentin and has stopped using it secondary to swelling. PAIN CLINIC ASSESSMENT AND PQRS: 1. The patient has some arthritic changes in his knees. He is not being treated for rheumatoid arthritis. 2. Height 5 feet 11 inches, weight 235 pounds, and BMI is 32. 3. Vital signs: Blood pressure 143/77, heart rate 65, respiratory rate 18, room air saturation 95%, and temperature 97.5. 4. Pain intensity 10. 5. Fall history: The patient has not fallen in the last 3 months. 6. Blood thinner. The patient is not on a blood thinning medication. 7. Hypertension. The patient is being treated for hypertension. 8. Opioids greater than 6 weeks. [place] [address] PAIN MANAGEMENT CONSULTATION Name: ORLY VIGIL JR Room: [facility]#: [id number] Admission: 07/23/19 Attend Phys: Elba Stroud MD Discharge: Date of : 58 Report #: [id number] [facility]. 9. Risk assessment tool, low for opioid use. 10. Functional assessment tool. The patient denies frequent use of opioid medications. 11. Tobacco: The patient states that he does not smoke cigarettes, but he does frack. 12. Alcohol: The patient occasionally drinks alcoholic beverages. PHYSICAL EXAMINATION: GENERAL: The patient is a well-developed, well-nourished white male. Appears his stated age. He is alert and oriented x 3. His affect is appropriate. Speech is fluent. HEENT: Normocephalic, atraumatic. Extraocular eye muscles intact. Sclerae nonicteric. Mucous membranes are moist. NECK: Without adenopathy or JVD. HEART: Regular rate. ABDOMEN: Nontender. EXTREMITIES: Upper extremity muscle strength judged to be 5/5 for the major muscle groups in the upper extremity. The patient has some pain and discomfort in his low back area. He has some pain and discomfort in his knees bilaterally. The patient walks with slight antalgic gait. Complains of pain in the lower portion of his back. Palpation in the area of the left and right posterior superior iliac spine areas are sore and revealed trigger points. IMPRESSION: 1. Bilateral trigger points in the low back area. 2. Bilateral knee pain. 3. Myofascial pain. 4. Anxiety/panic attacks. 5. Hypertension. 6. Hyperlipidemia. 7. Coronary artery disease. 8. History of pitting edema in his lower extremities -- has stopped using gabapentin. 9. History of tremors in his hands, left side more problematic than right. RECOMMENDATIONS: We discussed treatment options with the patient. At this juncture, we will proceed with an injection into the low back area where the trigger points are located. Past injections have proved quite beneficial. At this juncture, the patient was taken to the procedure area. He was assisted in getting on the examination table. He sat perpendicular to the table. A chair was placed under his feet for support. His back was sterilely prepped with a chlorhexidine solution and allowed to dry. Trigger point was noted on the right posterior superior iliac spine area near the gluteus ruben and latissimus dorsi. This trigger point was noted. A 25-[place] [address] PAIN MANAGEMENT CONSULTATION Name: ORLY VIGIL JR Room: [facility]#: [id number] Admission: 07/23/19 Attend Phys: Elba Stroud MD Discharge: Date of : 58 Report #: [id number] advanced into the area. The patient states that this did reproduce pain in the area of the trigger point. A total of 40 mg Depo-Medrol and 20 mg triamcinolone was injected into this trigger point area. The contralateral trigger point was noted on the opposite side. A 25-gauge needle was then advanced into the area of the trigger point in the area of the gluteus ruben, posterior superior iliac spine and junction of the latissimus dorsi. The patient states this did reproduce his discomfort. A 25-gauge needle was then advanced into this area. Aspiration was negative. A total of 6 mL of 0.5% bupivacaine with 40 mg Depo-Medrol and 20 mg triamcinolone was injected as we did on the contralateral side. The patient tolerated the procedure well. Pain was 4 at the time of discharge. A script for his medications of hydrocodone 10/325, Mobic 15 mg 1 p.o. daily and tizanidine muscle relaxant were all rewritten. The patient will call us if he has any concerns. A total of 150 tablets of hydrocodone 10/325 were dispensed. The patient is aware that opioid medications can become less effective over time. He is aware that some patients have developed tolerance to the medication as well as addiction. He feels medications are helpful. They enable him to remain gainfully employed. He is having no problems with his sensorium, which remains clear. <ELECTRONICALLY SIGNED> By: Elba Storud MD 08/05/19 0912 [id number]. Gm Stroud MD /nt
== END | disposition home or self-care (01) ==
LOC: M.PC 08:00
DX: M79.18 Myalgia, other site (principal); M25.561 Pain in right knee; M25.562 Pain in left knee; I10 Essential (primary) hypertension; E78.5 Hyperlipidemia, unspecified; I25.10 Atherosclerotic heart disease of native coronary artery without angina pectoris; Z98.890 Other specified postprocedural states; F41.9 Anxiety disorder, unspecified; Z79.899 Other long term (current) drug therapy; Z79.891 Long term (current) use of opiate analgesic; Z79.82 Long term (current) use of aspirin; Z88.8 Allergy status to other drugs, medicaments and biological substances

== ENCOUNTER → 2019-09-17 | Outpatient (CLI) | payer OTHER ==
--- NOTE | 2019-09-23 15:09 | PAINCON ---
[facility] [address] [place] [address] PAIN MANAGEMENT CONSULTATION Name: ORLY VIGIL JR Room: [facility]#: [id number] Admission: 09/17/19 Attend Phys: Elba Stroud MD Discharge: Date of : 58 Report #: [id number] THIS REPORT FOR: //name// cc: Chrissy Hodge MD, Katrina MD ~ THIS REPORT FOR: //name// CC: Chrissy Stroud DATE OF SERVICE: 09/17/2019 CHIEF COMPLAINT: Low back pain. HISTORY: The patient is a 59-year-old gentleman who has been followed in the Pain Clinic because of chronic pain involving his low back. He has a history of myofascial pain. Trigger point injections have been beneficial. He returns today indicating that his pain continues to be somewhat problematic. He rates it as a 7.5/10. He feels that his pain is about 40% improved overall. He is not having any complications from his medications. He is somewhat depressed. He has recently been laid off from his job. He has noticed a decrease in his activity level. He rates walking, sitting, standing, climbing stairs as problematic. ALLERGIES: TETANUS SHOT. CURRENT MEDICATIONS: Duloxetine 30 mg, lisinopril 20 mg, Lipitor 40 mg, gabapentin 600 mg 4 times daily, alprazolam 1 mg b.i.d., venlafaxine 75 mg, and hydrocodone 10/325. The patient stopped taking gabapentin because of swelling. PAIN CLINIC ASSESSMENT AND PQRS: 1. The patient has some arthritic changes in his knees. He is not being treated for rheumatoid arthritis. 2. Height 5 feet 11 inch, weight 235 pounds, BMI is 35. 3. Vital signs: Blood pressure is 148/90, heart rate 69, respiratory rate 16, room air saturation 97%, and temperature 98.1. 4. Pain intensity 7.5/10. 5. Fall history: The patient has not fallen in the last 3 months. 6. Blood thinner. The patient is not on a blood thinning medication. 7. Opioids. The patient receives medication from the Pain Clinic. 8. Risk assessment tool, low for opioid use. 9. Functional assessment tool, denies frequent use of opioid medication. 10. Tobacco: The patient does not smoke. 11. Alcohol. The patient occasionally drinks alcoholic beverages. PHYSICAL EXAMINATION: [place] [address] PAIN MANAGEMENT CONSULTATION Name: ORLY VIGIL JR Room: [facility]#: [id number] Admission: 09/17/19 Attend Phys: Elba Stroud MD Discharge: Date of : 58 Report #: [id number] GENERAL: The patient is a well-developed, well-nourished white male. Appears his stated age. He is alert and oriented x 3. His affect is appropriate. Speech is fluent. HEENT: Normocephalic, atraumatic. Extraocular eye muscles intact. Sclerae nonicteric. Mucous membranes are moist. NECK: Without adenopathy or JVD. HEART: Regular rate. ABDOMEN: Nontender. EXTREMITIES: Upper extremity muscle strength judged to be 5/5 for the major muscle groups in the upper extremity. The patient continues to have low back pain with some myofascial components in the lower portion of his back. He also has some pain in his knees bilaterally. He does walk with an antalgic gait. IMPRESSION: 1. Bilateral trigger points in the low back area. 2. Bilateral knee pain. 3. Myofascial pain. 4. Anxiety/panic attacks. 5. Hypertension. 6. Hyperlipidemia. 7. Coronary artery disease. 8. History of edema in the lower extremities, has stopped using gabapentin. 9. History of tremors in his hands, left hand more problematic than right. RECOMMENDATIONS: We discussed treatment options with the patient. At this juncture, we will continue with his medications. He feels that the medications are helpful. We will continue with hydrocodone 10 mg one p.o. every 4-6 hours. The patient will take up to 5 tablets daily. A script for his medications has been rewritten. The patient will also continue with meloxicam 15 mg. He will monitor his GI signs. If he notes any GI discomfort, he will stop taking the medications - might be the meloxicam. He will also continue with the muscle relaxant, tizanidine. He states that overall with his medications, he does not have any problems with thinking. He is able to think clearly. He is somewhat disappointed that he has been laid off from his job. Hopefully, he will be called back in the near future. We would like to thank you for letting us participate in his care. We hope he continues to improve. <ELECTRONICALLY SIGNED> By: Elba Stroud MD 09/23/19 1509 1049 [id number]. Gm Stroud MD /nt
== END ==
LOC: M.PC 04:58
DX: M54.5 Low back pain (principal); M25.561 Pain in right knee; M25.562 Pain in left knee; M79.18 Myalgia, other site; F41.9 Anxiety disorder, unspecified; I10 Essential (primary) hypertension; E78.5 Hyperlipidemia, unspecified; I25.10 Atherosclerotic heart disease of native coronary artery without angina pectoris; F11.20 Opioid dependence, uncomplicated; Z88.8 Allergy status to other drugs, medicaments and biological substances; Z79.1 Long term (current) use of non-steroidal anti-inflammatories (NSAID); Z79.810 Long term (current) use of selective estrogen receptor modulators (SERMs); Z79.899 Other long term (current) drug therapy

== ENCOUNTER → 2019-12-15 | Outpatient (CLI) | payer OTHER ==
--- NOTE | 2019-12-17 15:59 | PAINCON ---
[address] [address] PAIN MANAGEMENT CONSULTATION Name: ORLY VIGIL JR Room: [facility]#: [id number] Admission: 12/15/19 Attend Phys: Elba Stroud MD Discharge: Date of : 58 Report #: [id number] THIS REPORT FOR: //name// cc: Aakash Dee MD, Bruce D. MD ~ THIS REPORT FOR: //name// CC: Aakash Stroud DATE OF SERVICE: 12/15/2019 CHIEF COMPLAINT: Low back pain and left knee pain, which is [id number]-[id number]. HISTORY: The patient is a 59-year-old gentleman who has been followed in the pain clinic. As you may recall, he has chronic pain involving his low back area. He continues to have pain in the low back area. He is also experiencing pain in his knees. The left knee has become more and more problematic. He states that he has been told that it not one which would be helped by Surgery. He has been told that he will probably need a knee replacement. There is [id number]-kl-[id number] component to it. He did have a steroid injection in about 6 months ago. He noted some benefit from that. He has had x-rays in both knees were showing signs of degeneration. He is unemployed at this juncture. He is receiving unemployment benefits. ALLERGIES: TETANUS SHOT. CURRENT MEDICATIONS: Duloxetine 30 mg, lisinopril 20 mg, Lipitor 40 mg, gabapentin 600 mg 4 times daily, alprazolam 1 mg b.i.d., venlafaxine 75 mg, hydrocodone 10/325 one p.o. 5 times daily. PAIN CLINIC ASSESSMENT/PQRS: 1. The patient has some osteoarthritic changes in his knees. Left knee is most problematic. He is not being treated for rheumatoid arthritis. 2. Height 5 feet 10 inch, weight 255 pounds, BMI is 36. 3. Vital signs: Blood pressure , heart rate 64, respiratory rate 16, room air saturation 96%, temperature 97.4. 4. Pain intensity /10. 5. Fall history: The patient has not fallen in the last 3 months. 6. Blood thinner. The patient is not on a blood thinning medication. 7. Hypertension. The patient is being treated for hypertension. 8. Opioids greater than 6 weeks. The patient receives medication from the pain clinic. 9. Risk assessment tool, low for opioid use. 10. Functional assessment tool reviewed. 11. Recreational drug use. [place] [address] PAIN MANAGEMENT CONSULTATION Name: ORLY VIGIL JR Room: [facility]#: [id number] Admission: 12/15/19 Attend Phys: Elba Stroud MD Discharge: Date of : 58 Report #: [id number] 12. Tobacco: The patient does not smoke. 13. Alcohol: The patient occasionally drinks alcoholic beverages. PHYSICAL EXAMINATION: GENERAL: The patient is a well-developed, well-nourished white male. Appears his stated age. He is alert and oriented x 3. His affect is appropriate. Speech is fluent. HEENT: Normocephalic, atraumatic. Extraocular eye muscles intact. Sclerae nonicteric. Mucous membranes are moist. NECK: Without adenopathy or JVD. HEART: Regular rate. ABDOMEN: Nontender. The patient has pain in the lower portion of his back. He has pain and discomfort involving the left knee. EXTREMITIES: Upper extremity muscle strength judged to be 5/5 for the major muscle groups in the upper extremity. The patient has pain and discomfort in lower portion of his back and has some myofascial components to his pain and discomfort in the low back area. He also has pain in his knee bilaterally, left more problematic than right. The patient walks with an antalgic gait. IMPRESSION: 1. History of myofascial pain in the low back area. 2. Bilateral knee pain with svxa-pd-bioo pain developing on the left side. 3. Myofascial pain. 4. Anxiety/panic attacks. 5. Hypertension. 6. Hyperlipidemia. 7. Coronary artery disease. 8. History of edema of the lower extremities -- the patient stopped gabapentin. 9. History of tremors in his hands, left hand more problematic than right. RECOMMENDATIONS: We discussed treatment options with the patient. At this juncture, we will continue with his medications of hydrocodone 10 mg 1 p.o. every 4 hours. He will also continue with tizanidine 4 mg 1 p.o. q.i.d. as needed for muscle spasms. The patient will take meloxicam. He will continue to monitor his GI status. Should he notice worsening of pain and discomfort in the GI area. He will stop taking the medication. He is aware that opioid medications can become less effective over time because of development of tolerance. We will continue with his current medical regimen. A script for his medications has been provided. He will call us if he has any concerns. We would like to thank you for letting us to participate in his care. We hope he continues to improve. <ELECTRONICALLY SIGNED> By: Elba Stroud MD 12/17/19 1559 1106 1507N. MD SHARIFA Lester
== END ==
LOC: M.PC 11-12 08:30
PROVIDERS: ATTEND Anesthesiology Pain Medicine
DX: M17.0 Bilateral primary osteoarthritis of knee (principal); I25.10 Atherosclerotic heart disease of native coronary artery without angina pectoris; I10 Essential (primary) hypertension; E78.5 Hyperlipidemia, unspecified; Z79.899 Other long term (current) drug therapy

== ENCOUNTER → 2020-02-09 | Outpatient (CLI) | payer OTHER ==
[~2020-02-09] MED LIST changes: +ABILIFY 2 MG2 M1 PO; +FUROSEMIDE 20 M20 MG PO; +KLOR-CON M2020 MEQ PO; +NORVASC 2.5 MG2.5 M1 PO; +TOPROL XL50 MG PO
--- NOTE | 2020-03-03 08:38 | PAINCON ---
[address] [address] PAIN MANAGEMENT CONSULTATION Name: ORLY VIGIL JR Room: [facility]#: [id number] Admission: 02/09/20 Attend Phys: Elba Stroud MD Discharge: Date of : 58 Report #: [id number] THIS REPORT FOR: //name// cc: Aakash Dee MD, Bruce D. MD ~ THIS REPORT FOR: //name// CC: Aakash Stroud DATE OF SERVICE: 02/09/2020 CHIEF COMPLAINT: Here for medication renewal. HISTORY: The patient is a 59-year-old gentleman who has been followed in the Pain Clinic because of chronic back and left knee pain. He states that he has a torn meniscus in his left knee. He has not had surgery. He does have gfck-tq-jxsh problems with his knee. He is following up with his orthopedic doctor. He feels that his pain medications are not as helpful. They do not last as long as he would like. He rates his pain as an 8/10. Walking, sitting, standing, going from a sitting to a standing position, lifting and bending can all be more problematic. He feels that his medications afford him the ability to engage in activities with less pain. ALLERGIES: TETANUS SHOT. CURRENT MEDICATIONS: Duloxetine 30 mg, lisinopril 20 mg, Lipitor 40 mg, gabapentin 600 mg 4 times daily, alprazolam 1 mg b.i.d., venlafaxine 75 mg, and hydrocodone 10/325 one p.o. 5 times daily. PAIN CLINIC ASSESSMENT AND PQRS: 1. The patient has some osteoarthritic changes in his knees. His left knee is most problematic. He is not being treated for rheumatoid arthritis. 2. Height 5 feet 11 inches, weight 250 pounds, BMI is 35.1. 3. Vital signs: Blood pressure 143/78, heart rate 76, respiratory rate 16, room air saturation is 95%, and temperature 97.9 degrees. Pain intensity 8/10. 4. Fall history: The patient has not fallen in the last 3 months. 5. Blood thinner. The patient is not on a blood thinning medication. 6. Hypertension. The patient is being treated for hypertension. 7. Opioids greater than 6 weeks. The patient receives medication from one source the Pain Clinic. 8. Risk assessment tool, low for opioid use. 9. Functional assessment tool reviewed. 10. Recreational drug use. The patient denies. 11. Tobacco: The patient does not smoke. 12. Alcohol: The [place] [address] PAIN MANAGEMENT CONSULTATION Name: ORLY VIGIL JR Room: [facility]#: [id number] Admission: 02/09/20 Attend Phys: Elba Stroud MD Discharge: Date of : 58 Report #: [id number] PHYSICAL EXAMINATION: GENERAL: The patient is a well-developed, well-nourished white male. Appears his stated age. He is alert and oriented x 3. His affect is appropriate. Speech is fluent. HEENT: Normocephalic, atraumatic. Extraocular eye muscles intact. Sclerae nonicteric. Mucous membranes are moist. NECK: Without adenopathy or JVD. HEART: Regular rate. ABDOMEN: Nontender. The patient has some pain and discomfort in lower portion of his back with pain that radiates down into his legs and pain involving the left knee. MUSCULOSKELETAL: Upper extremity muscle strength judged to be 5/5 for the major muscle groups in the upper extremity. The patient has some pain and discomfort in lower portion of his back with some myofascial components of pain in the left and right lateral paraspinous area at approximately L4-L5 and L5-S1. Has complaint of knee pain, particularly on the left because of dhmp-wi-nskl discomfort. He walks with an antalgic gait. IMPRESSION: 1. History of myofascial pain in the low back area. 2. Bilateral knee pain with yimu-dz-tats involvement on the left side. 3. Myofascial pain. 4. Anxiety/panic attacks. 5. Hypertension. 6. Hyperlipidemia. 7. Coronary artery disease. 8. History of edema of the lower extremities - the patient had used gabapentin in the past and stopped taking that. 9. History of tremors in his hands, left hand more problematic than right. RECOMMENDATIONS: We discussed treatment options with the patient. At this juncture, we will continue with his medications. A script for his medications of hydrocodone 10 mg one p.o. every 4 hours have been provided. The patient will call if he has any problems with his medications. He will continue with the muscle relaxant, tizanidine 1 p.o. q.i.d. The patient will use meloxicam. He will continue to monitor his GI tract for irritation. A script for gabapentin 600 mg 1 p.o. t.i.d. as well as hydrocodone 10/325 one p.o. every 4-6 hours has been released. A total of 150 tablets per month. He has been given a 2-month supply. He will also call us if he has any problems with use of tizanidine medication. <ELECTRONICALLY SIGNED> By: Elba Stroud MD 03/03/20 0838 1201 2313N. Gm Stroud MD /nt
== END ==
LOC: M.PC 09:20
PROVIDERS: ATTEND Anesthesiology Pain Medicine
DX: G89.29 Other chronic pain (principal); M54.5 Low back pain; M25.561 Pain in right knee; M25.562 Pain in left knee; I10 Essential (primary) hypertension; M79.18 Myalgia, other site; E78.5 Hyperlipidemia, unspecified; F41.9 Anxiety disorder, unspecified; I25.10 Atherosclerotic heart disease of native coronary artery without angina pectoris; Z68.35 Body mass index [BMI] 35.0-35.9, adult; Z88.8 Allergy status to other drugs, medicaments and biological substances; Z79.891 Long term (current) use of opiate analgesic; Z79.899 Other long term (current) drug therapy

== ENCOUNTER → 2020-03-31 | Outpatient (CLI) | payer OTHER ==
--- NOTE | 2020-04-20 13:58 | PAINCON ---
[address] [address] PAIN MANAGEMENT CONSULTATION Name: ORLY VIGIL JR Room: [facility]#: [id number] Admission: 03/31/20 Attend Phys: Elba Stroud MD Discharge: Date of : 58 Report #: [id number] THIS REPORT FOR: //name// cc: Aakash Dee MD, Bruce D. MD ~ CC: Aakash Stroud DATE OF SERVICE: 03/31/2020 CHIEF COMPLAINT: Left knee pain, low and mid back pain. HISTORY: The patient is a 60-year-old gentleman who has been followed in the Pain Clinic. He suffers from chronic back pain. He has also noted some increased problems with his knee. The left knee is more problematic at this juncture. He rates his pain as 7/10 at this point. He has noticed that the pain has increased because of change in weather pattern. Also, has experiencing more tightness in his back. He has been furloughed since 09/2019 because of the pandemic. He has been having some problem with doing simple day-to-day tasks. He has seen his orthopedic surgeon. He has had an injection in the past at his knee for the pain. He has returned today for renewal of his medications. Walking, sitting, standing, climbing stairs, bending, and lifting exacerbate his discomfort. ALLERGIES: TETANUS SHOT. CURRENT MEDICATIONS: Duloxetine 30 mg, lisinopril 20 mg, Lipitor 40 mg, gabapentin 600 mg q.i.d., alprazolam 1 mg b.i.d., venlafaxine 75 mg, and hydrocodone 10/325 up to 5 times daily. PAIN CLINIC ASSESSMENT AND PQRS: 1. The patient has some osteoarthritic changes in his knees. He has left knee pain, which is problematic. Has some pain and discomfort in his back. He is not being treated for rheumatoid arthritis. 2. Height 5 feet 11 inches, weight 246 pounds, BMI 35. 3. Vital Signs: Blood pressure is 119/80, heart rate 55, respiratory rate 18, room air saturation 96%, and temperature 97.0. 4. Pain intensity is 7/10. 5. Fall history: The patient has not fallen in the last 3 months. 6. Blood thinner. The patient is not on a blood thinning medication. 7. Hypertension. The patient is being treated for hypertension. 8. Opioids greater than 6 weeks. The patient receives medication from the Pain Clinic. 9. Risk assessment tool, low for opioid use. 10. Functional assessment tool reviewed. 11. Recreational drug use: [place] [address] PAIN MANAGEMENT CONSULTATION Name: ORLY VIGIL JR Room: [facility]#: [id number] Admission: 03/31/20 Attend Phys: Elba Stroud MD Discharge: Date of : 58 Report #: [id number] 12. Tobacco: The patient does not smoke. 13. Alcohol: The patient occasionally drinks alcoholic beverages. PHYSICAL EXAMINATION: GENERAL: The patient is a well-developed, well-nourished white male. Appears his stated age. He is alert and oriented x 3. His affect is appropriate. Speech is fluent. HEENT: Normocephalic, atraumatic. Extraocular eye muscles intact. The patient has a facial covering. NECK: Without adenopathy or JVD. HEART: Regular rate. LUNGS: Clear. ABDOMEN: Nontender. MUSCULOSKELETAL: Strength in upper extremity 5/5 for the major muscle groups in the upper extremity. The patient has some pain and discomfort in the lower portion of his back. Has pain in the left knee. Has some pain in the right and left paraspinous areas at approximately L4-L5 and L5-S1. Has [id number] involvement of pain on his left knee. Walks with an antalgic gait. IMPRESSION: 1. History of myofascial pain, low back area. 2. Bilateral knee pain, [id number] involvement of the left side. 3. Myofascial pain. 4. Anxiety/panic attacks. 5. Hypertension. 6. Hyperlipidemia. 7. Coronary artery disease. 8. History of edema of the lower extremities. The patient noted some resolution ____ use of gabapentin. 9. History of tremors in his hands, left hand more problematic than right. RECOMMENDATIONS: We discussed treatment options with the patient. Risks and benefits of opioid medications again were reviewed. The patient is aware that some people become dependent on opioids. He has not shown any signs of addiction. He has taken the medication as prescribed. He feels this medication enable him to engage in activities of daily living, he would not be able to without their use. He is able to think clearly. Keeps his medications in a guarded area. We will continue with his medications. A script for tizanidine 1 p.o. q.i.d. has been continued. The patient will also continue with hydrocodone 10/325 one p.o. every 4-6 hours. A script for 2 months of hydrocodone, tizanidine and meloxicam have been provided. The patient will stop taking meloxicam should he note some GI complaints. <ELECTRONICALLY SIGNED> By: Elba Stroud MD 04/20/20 [id number]. Gm Stroud MD /nt
== END ==
LOC: M.PC 10:15
PROVIDERS: ATTEND Anesthesiology Pain Medicine
DX: M25.562 Pain in left knee (principal); M54.89 Other dorsalgia

== ENCOUNTER → 2020-05-26 | Outpatient (CLI) | payer OTHER | LOC: M.PC 09:01 | PROVIDERS: ATTEND Anesthesiology Pain Medicine | DX: M89.8X6 Other specified disorders of bone, lower leg (principal); M89.8X8 Other specified disorders of bone, other site; M54.5 Low back pain ==